=== PATIENT | male | born 1990 | race Caucasian/White ===

== ENCOUNTER 2017-11-20 18:16 | Emergency (ER) | payer MEDICARE, MEDICAID, SELFPAY ==
[2017-11-20 18:22] VITALS: BP 136/83; PULSE 117; RESP 18; TEMP 36.4; O2SAT 95
[2017-11-20 18:25] VITALS: RESP 8
[2017-11-20] MEDS: Albuterol/Ipratropium 3 ML UPD VIAL UPD (18:25)
--- NOTE | 2017-11-20 18:31 | ED.GENADUL_ITS ---
Disposition Clinical Impression: Asthma exacerbation Disposition: HOME Condition: Improving Instructions: Asthma (ED) Additional Instructions: Use the inhaler every 4 hours as needed and directed. Take the steroids until finished. Follow-up with your primary care doctor within the next week. Return to the emergency department with any worsening or new concerning symptoms. Prescriptions: Prednisone 50 mg PO DAILY 5 Days tablet Medical Decision Making - Medical Decision Making 27-year-old male with history of asthma who presents with breath that started while working in the heat changing a tire. Diminished breath sounds with minimal wheezing throughout. Oxygen saturation 95% on room air. Airway is intact and patient speaking in full sentences. Will give neb treatment and p.o. steroids and reassess. He denies any fever, cough and has no areas of localized diminished breath sounds so therefore I do not see any acute indication for chest x-ray at this time. 1830: Patient feels better after first neb treatment. Breath sounds improved. Patient offered a second neb treatment and is agreeable. 1999: Patient feels better after second neb treatment. Breath sounds improved. No wheezing. Oxygen saturation 97% on room air. Patient is speaking full sentences and in no acute distress. While in the emergency department, patient's had stated that she wanted patient's heart checked out. She states that patient's father has a history of heart disease and they have talked to the primary care doctor regarding this and they state the primary care doctor advised him to come to the emergency department. Prior to reevaluation, [facility] called stating that patient's had been calling them stating that patient's heart was not being checked out and they were not being taken care of properly. I discussed this with patient's at bedside stating that patient came in for an asthma exacerbation and we have been treating that properly and expeditously as possible considering a busy emergency department. I explained how he has received 2 neb treatments and oral steroids and his symptoms have improved and thus we have been addressing his acute complaint today. Regards to a concern of his heart being checked out relating to a concern of family history of cardiac disease, I reassured him that his cardiac exam was without murmur or any other obvious acute abnormalities on monitor during today's visit. However patient was informed that lifestyle factors are a huge contribution to risk of heart disease. Patient is obese and is a daily smoker. He was instructed to alter his chronic lifestyle factors which may help contribute to his overall health. I also discussed that if the primary care doctor is referring patient to the emergency department for a cardiac evaluation it would be for an acute complaint and not for a general evaluation regarding a family history. stated that she wanted the paperwork and wanted to leave. Patient states that he does feel better and feels good to go home. I gave him an albuterol with spacer for home. Prescription for steroids given. They are instructed to return to the emergency department with any acute worsening of his symptoms. History of Present Illness - General Chief complaint: SOB Stated complaint: SOB Time Seen by Provider: 11/20/17 18:17 Source: patient Mode of arrival: ambulatory Limitations: no limitations - History of Present Illness Initial comments: Patient is a 27-year-old male with a history of asthma who presents with shortness of breath that started while changing a tire in his sister's car. States he was working out in the heat and he is in the became short of breath. Patient attempted to use his albuterol inhaler but states it was empty. Denies history of intubations. He denies recent fever or cough or chest pain. - Related Data ARIPiprazole [Abilify] 5 mg PO DAILY 02/25/16 Albuterol [Proair Hfa] 8.5 gm IH PRN PRN 07/28/17 Ranitidine [Zantac] 150 mg PO BID #14 tab 07/28/17 BusPIRone [Buspar] 5 g PO TID 08/15/17 Cyclobenzaprine [Flexeril] 10 mg PO Q6H PRN PRN #20 tab 10/30/17 Prednisone 50 mg PO DAILY 5 Days tablet 11/20/17 Allergies Allergy/AdvReac Type Severity Reaction Status Date / Time Latex, Natural Rubber Allergy Unverified 10/30/17 21:31 Penicillins Allergy Hives Unverified 10/30/17 21:31 Sulfa (Sulfonamide Allergy Hives Unverified 10/30/17 21:31 Antibiotics) oxycodone AdvReac Intermediate Nausea Unverified 10/30/17 21:31 amoxicillin AdvReac Mild stomach Unverified 10/30/17 21:31 issues Review of Systems Constitutional: denies: chills, fever Eyes: denies: eye pain ENT: denies: ear pain, dental pain Respiratory: shortness of breath. denies: cough Cardiovascular: denies: chest pain, dyspnea on exertion Gastrointestinal: denies: abdominal pain, nausea, vomiting Genitourinary: denies: urgency, dysuria, frequency Musculoskeletal: denies: back pain Skin: denies: rash, lesions Neurological: denies: headache, weakness, numbness Past Medical History - Past Medical History Medical history: asthma, GERD GERD Surgical history: other (orthopedic surgeries) Family history: CAD/UT, other (Unknown clotting disorder ) - Social History Smoking status: current everyday smoker Alcohol use: rarely Drug use: none General Exam - General Limitations: no limitations General appearance: alert, in no apparent distress - Eye Eye exam: Present: EOMI - Respiratory Respiratory exam: Present: other (Sounds throughout.) - Cardiovascular Cardiovascular Exam: Present: regular rate, normal rhythm. Absent: bradycardia , tachycardia - GI/Abdominal GI/Abdominal exam: Present: soft, normal bowel sounds. Absent: distended, tenderness, guarding, rebound, rigid - Neurological Exam Neurological exam: Present: alert, oriented X3 - Psychiatric Psychiatric exam: Present: normal affect - Skin Skin exam: Present: warm, dry, intact Course Vital Signs - 24 hr 11/20/17 18:22 Temperature 97.5 F L Pulse 117 H Respiratory 18 Rate Blood Pressure 136/83 Pulse Oximetry 95
[2017-11-20] MEDS: predniSONE 20 MG TAB 60 MG PO (19:09)
[2017-11-20] MEDS: Albuterol 2.5 MG/3 ML INH SOLN VIAL UPD (19:10)
[2017-11-20 19:52] VITALS: RESP 18
[2017-11-20 20:20] VITALS: BP 132/77; PULSE 108; RESP 18; TEMP 36.6; O2SAT 94
[2017-11-20] MEDS: Albuterol HFA 8 GM 60 PUFF INH IH (20:20)
[2017-11-20] MEDS: Inhaler, Assist Device 1 EACH MC (20:25)
== END 2017-11-20 20:24 | disposition home or self-care (01) ==
PROVIDERS: Emergency Provider Physician Assistant; PCP Family Medicine
DX: J45.901 Unspecified asthma with (acute) exacerbation (principal); F17.210 Nicotine dependence, cigarettes, uncomplicated
CPT/HCPCS: 94640; 99284 ×2; J7512; J7613; J7620

== ENCOUNTER 2017-12-28 17:23 | Emergency (ER) | payer MEDICARE, MEDICAID, SELFPAY ==
[2017-12-28 17:35] VITALS: BP 151/125; PULSE 91; RESP 16; TEMP 36.2; O2SAT 97
--- NOTE | 2017-12-28 19:15 | DI.RAD_ITS ---
SYMPTOM/DIAGNOSIS: PAIN, SWELLING RIGHT FOREARM: Two views. No priors. No acute fracture or dislocation is identified. IMPRESSION: Negative examination.
--- NOTE | 2017-12-28 20:06 | DI.VRAD_ITS ---
EXAM: XR Right Forearm, 2 Views CLINICAL HISTORY: 27 years old, male; Pain; Lower or forearm; Bilateral TECHNIQUE: Frontal and lateral views of the right forearm. COMPARISON: None available. FINDINGS: Bones/joints: Unremarkable. No acute fracture. No dislocation. Soft tissues: No radiopaque foreign body. IMPRESSION: No acute fracture or malalignment. Dictated and Authenticated by: Ann Goldberg MD. Ordering:LORI MONTANEZ MD
--- NOTE | 2017-12-28 20:29 | ED.GENADUL_ITS ---
Discharge Plan Disposition Patient Disposition: HOME Condition: Good Discharge Details Chief Complaint: Orthopedic Clinical Impression: Contusion Reason For Visit: RT ARM INJ Primary Care Provider: Liz Whitaker ED Provider: Juanis Khan Home Meds and New Rx's Prescriptions: Continue aripiprazole [Abilify] 5 MG tablet 5 mg PO DAILY RF: 0 albuterol sulfate [ProAir HFA] 200 PUFF HFA aerosol inhaler 8.5 gm Inhalation PRN PRNRF: 0 ranitidine HCl [Zantac] 150 MG tablet 150 mg PO BID Qty: 14 RF: 0 buspirone 5 MG tablet 5 g PO TID RF: 0 cyclobenzaprine 10 MG tablet 10 mg PO Q6H PRN PRN (Reason: Pain) Qty: 20 RF: 0 prednisone 50 MG tablet 50 mg PO DAILY 5 Days RF: 0 Discharge Instructions Additional Instructions: Can use warm moist heat or ice if needed for comfort. can use acetaminophen and or ibuprofen as directed for pain Referrals: Liz Whitaker [Primary Care Provider] - (Follow-up as needed) Medical Decision Making Medical Records Medical records reviewed: Yes I reviewed the patient's medical records. Imaging Data Radiologic Study: Imaging: X-Ray (Right forearm) Radiologist's impression: No acute fracture no radiopaque foreign HPI - General Adult General Mode of arrival: ambulatory . Date/Time Provider Initiated Documentation: 12/28/17 17:35 . Limitations to Documentation: no limitations . Information obtained by: patient and RN notes reviewed . HPI Narrative: Patient states he had a injury to his right forearm while helping a friend install a window, has sensation of fluid blood traveling down to his hand. Denies any numbness tingling or decreased sensation or strength Related Data Home Medications Medication Instructions Recorded Confirmed aripiprazole [Abilify] 5 mg PO DAILY 02/25/16 12/28/17 albuterol sulfate [ProAir HFA] 8.5 gm INHALATION PRN PRN 07/28/17 12/28/17 buspirone 5 g PO TID 08/15/17 12/28/17 Previous Rx's Medication Instructions Recorded ranitidine HCl [Zantac] 150 mg PO BID #14 tab 07/28/17 cyclobenzaprine 10 mg PO Q6H PRN PRN #20 tab 10/30/17 prednisone 50 mg PO DAILY 5 Days tablet 11/20/17 Allergies Allergy/AdvReac Type Severity Reaction Status Date / Time Latex, Natural Rubber Allergy Unverified 12/28/17 17:39 Penicillins Allergy Hives Unverified 12/28/17 17:39 Sulfa (Sulfonamide Allergy Hives Unverified 12/28/17 17:39 Antibiotics) oxycodone AdvReac Intermediate Nausea Unverified 12/28/17 17:39 amoxicillin AdvReac Mild stomach Unverified 12/28/17 17:39 issues General Stated Complaint: Orthopedic BRENDEN: 3 Review of Systems Review of Systems All systems reviewed & are unremarkable except as noted in HPI and below PFSH Social History Smoking/Tobacco Use Status: Former Tobacco Use Exam Const General: cooperative, no acute distress and disheveled (Unkempt) Nutritional Appearance: obese Cardio Rate: regular rate Skin Lesions: lesion noted (Small superficial laceration scabbed over no signs of infection) Rashes: rash noted Extrem General: full ROM, normal capillary refill and no edema Course Vital Signs Temperature 36.2 C L 12/28/17 17:35 Pulse 91 H 12/28/17 17:35 Respiratory Rate 16 12/28/17 17:35 Blood Pressure 151/125 H 12/28/17 17:35 Pulse Oximetry 97 12/28/17 17:35 Temperature 36.2 C L 12/28/17 17:35 Pulse 91 H 12/28/17 17:35 Respiratory Rate 16 12/28/17 17:35 Blood Pressure 151/125 H 12/28/17 17:35 Pulse Oximetry 97 12/28/17 17:35
== END 2017-12-28 20:42 | disposition home or self-care (01) ==
PROVIDERS: Emergency Provider Nurse Practitioner Acute Care; PCP Family Medicine
DX: S50.11XA Contusion of right forearm, initial encounter (principal); X58.XXXA Exposure to other specified factors, initial encounter
CPT/HCPCS: 99283; 73090; 99282

== ENCOUNTER 2018-02-01 09:10 | Emergency (ER) | payer MEDICARE, MEDICAID, SELFPAY ==
[2018-02-01 09:13] VITALS: BP 141/83; PULSE 83; RESP 16; TEMP 36.1; O2SAT 93
--- NOTE | 2018-02-01 09:35 | ED.GENADUL_ITS ---
Discharge Plan Disposition Patient Disposition: HOME Condition: Stable Discharge Details Chief Complaint: RespSymp Clinical Impression: Infection, respiratory tract Primary Care Provider: Liz Whitaker ED Provider: Jonathan Zelaya Home Meds and New Rx's Prescriptions: New azithromycin 250 mg tablet See Label Instructions .ROUTE .COMPLEX Qty: 6 RF: 0 Continue aripiprazole [Abilify] 5 MG tablet 5 mg PO DAILY RF: 0 albuterol sulfate [ProAir HFA] 200 PUFF HFA aerosol inhaler 8.5 gm Inhalation PRN PRNRF: 0 ranitidine HCl [Zantac] 150 MG tablet 150 mg PO BID Qty: 14 RF: 0 buspirone 5 MG tablet 5 g PO TID RF: 0 Discharge Instructions Instructions: Upper Respiratory Infection (ED), Cold Symptoms (ED) Additional Instructions: Return to the emergency department immediately for any new or significant worsening of symptoms otherwise take medication as prescribed. You may continue to take [id number] cough and cold medication to control your symptoms and follow-up with your primary care provider if not improving over the next week. Referrals: Liz Whitaker [Primary Care Provider] - 1 week (as needed for reassessment) Discharge Data Discharge Date/Time-TO BE ENTERED AT DEPARTURE: 02/01/18 10:55 Medical Decision Making Patient presenting to the emergency department with chief complaint of 3 days of cold symptoms. Patient has been using [id number] therapy and not having much relief. Patient does state that he is living in a camper has minimal heat until the end of the month. Patient states harsh cough. Physical exam is remarkable for slight rhonchi in the lower bases with diminished lung sounds otherwise findings consistent with upper respiratory tract infection. Given patient's living condition plan to perform radiological imaging due to abnormal lung finding but I more suspect atelectasis given patient's body habitus. Plan to give DuoNeb pending results. Patient otherwise nontoxic and in no signs of acute distress. Radiological imaging of the chest was negative and patient was reassessed and stated improvements and chest tightness after the DuoNeb. Given this I feel that patient has upper respiratory tract infection more likely viral in nature that he is safe to be discharged. Of concern is patient's living condition where they do not have any heat or resources. Patient was prescribed a Z-Aly along [employer] to help with his cough symptoms and encouraged to use over -the-counter symptomatic medications as needed. Patient strongly encouraged to return for any new or worsening symptoms or to follow-up with primary care in 1 week if not improving. After discussion of diagnosis and plan of care patient has no further needs, questions, or concerns and states clear understanding to return to the emergency department for any worsening symptoms. HPI General Mode of arrival: ambulatory . Date/Time Provider Initiated Documentation: 02/01/18 09:11 . Limitations to Documentation: no limitations . Information obtained by: patient and RN notes reviewed . History of Present Illness 27 year old M presents to the emergency department with the chief complaint of Cold symptoms, described as moderate, Quality is described as aching ( Generalized body aches), Patient started experiencing this day(s) (3) and it has been constant. No relieving factors improve symptom(s), No exacerbating factors reported . Patient did receive the following treatments prior to arrival, other ( NyQuil) Related Data Home Medications Medication Instructions Recorded Confirmed aripiprazole [Abilify] 5 mg PO DAILY 02/25/16 02/01/18 albuterol sulfate [ProAir HFA] 8.5 gm INHALATION PRN PRN 07/28/17 02/01/18 ranitidine HCl [Zantac] 150 mg PO BID #14 tab 07/28/17 02/01/18 buspirone 5 g PO TID 08/15/17 02/01/18 azithromycin See Label Instructions .ROUTE 02/01/18 .COMPLEX #6 tab Previous Rx's Medication Instructions Recorded ranitidine HCl [Zantac] 150 mg PO BID #14 tab 07/28/17 azithromycin See Label Instructions .ROUTE 02/01/18 .COMPLEX #6 tab Allergies Allergy/AdvReac Type Severity Reaction Status Date / Time Latex, Natural Rubber Allergy Unverified 02/01/18 09:17 Penicillins Allergy Hives Unverified 02/01/18 09:17 Sulfa (Sulfonamide Allergy Hives Unverified 02/01/18 09:17 Antibiotics) oxycodone AdvReac Intermediate Nausea Unverified 02/01/18 09:17 amoxicillin AdvReac Mild stomach Unverified 02/01/18 09:17 issues General Stated Complaint: RespSymp BRENDEN: 3 Review of Systems Constitutional Reports body ache(s), Reports chills, Denies fever(s), Denies headache(s) and Reports malaise Eyes Denies eye discharge ENT Denies ear discharge, Reports otalgia, Denies headache(s), Reports nasal congestion, Reports nasal discharge, Reports sinus pressure, Denies sore throat and Denies throat swelling Cardiovascular Reports chest pain and Reports dyspnea Respiratory Reports cough and Reports dyspnea Musculoskeletal Denies joint swelling Integumentary/Breasts Denies rash Neurologic Denies headache(s) Allergic/Immunologic Denies throat swelling PFS Social History Smoking/Tobacco Use Status: Former Tobacco Use Exam Const General: cooperative, comfortable and no acute distress Orientation: alert and awake [facility] Head: normal to inspection, normocephalic and atraumatic Ears: hearing grossly normal bilaterally, TM's normal bilaterally, TM abnormal with fluid behind the TM on the left and unable to visualize TM on the right ( Cerumen impaction) General nose exam: external nose normal and nares normal Face and sinus: no erythema and no sinus tenderness Mouth: oral mucosae normal, no drooling, no muffled voice and no trismus Throat: posterior oropharynx normal Neck Neck: normal visual inspection, full ROM, no lymphadenopathy, no meningeal signs , trachea midline and supple Resp Effort & Inspection: normal respiratory effort, able to speak in complete sentences and cough Quality of cough: dry Auscultation: diminished lung sounds bilaterally in the lower lung walters and rhonchi lower bilaterally Cardio Rate: regular rate Rhythm: regular rhythm Heart Sounds: S1 normal, S2 normal, normal S1 and S2, no click, no gallops, no murmurs and no rubs Skin General skin exam: no rashes or lesions noted and dry skin (warm) Neuro General: alert, awake, oriented x3, gait normal and moves all extremities Cognition: normal cognition Speech: speech normal Course Vital Signs Temperature 36.1 C L 02/01/18 09:13 Pulse 83 02/01/18 09:13 Respiratory Rate 16 02/01/18 09:13 Blood Pressure 141/83 H 02/01/18 09:13 Pulse Oximetry 93 L 02/01/18 09:13 Temperature 36.1 C L 02/01/18 09:13 Temperature Source Temporal Artery Scan 02/01/18 09:13 Pulse 83 02/01/18 09:13 Respiratory Rate 16 02/01/18 09:13 Respiratory Effort Non-Labored 02/01/18 09:19 Respiratory Depth Normal 02/01/18 09:19 Blood Pressure 141/83 H 02/01/18 09:13 Blood Pressure Position Sitting 02/01/18 09:13 Pulse Oximetry 93 L 02/01/18 09:13 Oxygen Delivery Method Room Air 02/01/18 09:13 Oxygen Flow Rate 0 02/01/18 09:13 Pain Level 2 02/01/18 09:13
[2018-02-01] MEDS: Albuterol/Ipratropium 3 ML UPD VIAL UPD (09:39)
--- NOTE | 2018-02-01 10:22 | DI.RAD_ITS ---
SYMPTOMS/DIAGNOSIS: COUGH PA AND LATERAL CHEST: The heart is normal in size. The lungs are clear. The mediastinal structures and pleura appear intact. SUMMARY: Normal chest.
[2018-02-01 10:55] VITALS: BP 122/80; PULSE 90; RESP 18; TEMP 36.8; O2SAT 99
== END 2018-02-01 10:55 | disposition home or self-care (01) ==
PROVIDERS: Emergency Provider Nurse Practitioner Family; PCP Family Medicine
DX: J22 Unspecified acute lower respiratory infection (principal); Z87.891 Personal history of nicotine dependence
CPT/HCPCS: 94640; 99283; 71046; J7620

== ENCOUNTER 2018-03-02 23:43 | Emergency (ER) | payer MEDICARE, MEDICAID, SELFPAY ==
[2018-03-02 23:47] VITALS: BP 152/115; PULSE 98; RESP 16; TEMP 36.3; O2SAT 99
[2018-03-02 23:54] VITALS: BP 154/101
--- NOTE | 2018-03-02 23:59 | W.ED.GENAD ---
Discharge Plan Disposition Patient Disposition: HOME Condition: Improving Discharge Details Chief Complaint: ColdExpose Clinical Impression: Cold exposure Primary Care Provider: Liz Whitaker ED Provider: Elias Chang Home Meds and New Rx's Prescriptions: Continue aripiprazole [Abilify] 5 MG tablet 5 mg PO DAILY RF: 0 albuterol sulfate [ProAir HFA] 200 PUFF HFA aerosol inhaler 8.5 gm Inhalation PRN PRNRF: 0 ranitidine HCl [Zantac] 150 MG tablet 150 mg PO BID Qty: 14 RF: 0 buspirone 5 MG tablet 5 g PO TID RF: 0 Discharge Instructions Additional Instructions: Keep your feet warm and dry tonight. Continue your regular medications. Medical Decision Making 27-year-old male who is been sleeping in his vehicle and is awaiting placement in an apartment. He presents complaining of cool feet difficulty warming them in his vehicle. He states he had a walker is now in his boots evening. No blisters. No evidence of ortega bite or ortega nip. It is improved since taking his shoes off and warming his feet up. He has not had any black or discoloration of the skin. Patient is at risk for trench foot but is not had any permanent damage. Nursing staff is work with him to dry his clothing and shoes. He is stable for outpatient management. HPI General Mode of arrival: ambulatory. Date/Time Provider Initiated Documentation: 03/02/18 23:56. Limitations to Documentation: no limitations. Information obtained by: patient. History of Present Illness 27 year old M presents to the emergency department with the chief complaint of Cold feet/cold exposure, and is localized to the lower extremity. Patient started experiencing this hour(s) and it has been intermittent. No relieving factors improve symptom(s), No exacerbating factors reported . Related Data Home Medications Medication Instructions Recorded Confirmed aripiprazole [Abilify] 5 mg PO DAILY 02/25/16 02/01/18 albuterol sulfate [ProAir HFA] 8.5 gm INHALATION PRN PRN 07/28/17 03/02/18 ranitidine HCl [Zantac] 150 mg PO BID #14 tab 07/28/17 02/01/18 buspirone 5 g PO TID 08/15/17 02/01/18 Previous Rx's Medication Instructions Recorded ranitidine HCl [Zantac] 150 mg PO BID #14 tab 07/28/17 Allergies Allergy/AdvReac Type Severity Reaction Status Date / Time Latex, Natural Rubber Allergy Unverified 03/02/18 23:51 Penicillins Allergy Hives Unverified 03/02/18 23:51 Sulfa (Sulfonamide Allergy Hives Unverified 03/02/18 23:51 Antibiotics) oxycodone AdvReac Intermediate Nausea Unverified 03/02/18 23:51 amoxicillin AdvReac Mild stomach Unverified 03/02/18 23:51 issues General Stated Complaint: ColdExpose BRENDEN: 5 Review of Systems Review of Systems 4 systems reviewed and otherwise neg PFSH Social History Smoking/Tobacco Use Status: Never Exam Narrative Exam Narrative: GEN: awake, alert, oriented 3. Pleasant, well groomed, interactive. HEAD: Normocephalic, atraumatic ENT: Mucous membranes moist, oropharynx unremarkable, External ear exam unremarkable EYES: PERRL, EOMI NECK: Full ROM, no VERO, no menigismus EXT: Full ROM, no edema, no rash. No lesions, no skin breakdown, capillary refill less than 2 seconds. 2+ DP billy Neuro: Grossly normal neurologic exam, conversant, interactive. Psych: Speech fluent, thoughts congruent, affect normal Course Vital Signs Temperature 36.3 C L 03/02/18 23:47 Pulse 98 H 03/02/18 23:47 Respiratory Rate 16 03/02/18 23:47 Blood Pressure 152/115 H 03/02/18 23:47 Pulse Oximetry 99 03/02/18 23:47 Temperature 36.3 C L 03/02/18 23:47 Temperature Source Skin 03/02/18 23:47 Pulse 98 H 03/02/18 23:47 Respiratory Rate 16 03/02/18 23:47 Respiratory Effort Non-Labored 03/02/18 23:52 Respiratory Depth Normal 03/02/18 23:52 Respiratory Pattern Normal 03/02/18 23:52 Blood Pressure 154/101 H 03/02/18 23:54 Pulse Oximetry 99 03/02/18 23:47 Pain Level 4 03/02/18 23:52
--- NOTE | 2018-03-03 00:02 | ED.GENADUL_ITS ---
Discharge Plan Disposition Patient Disposition: HOME Condition: Improving Discharge Details Chief Complaint: ColdExpose Clinical Impression: Cold exposure Primary Care Provider: Liz Whitaker ED Provider: Elias Chang Home Meds and New Rx's Prescriptions: Continue aripiprazole [Abilify] 5 MG tablet 5 mg PO DAILY RF: 0 albuterol sulfate [ProAir HFA] 200 PUFF HFA aerosol inhaler 8.5 gm Inhalation PRN PRNRF: 0 ranitidine HCl [Zantac] 150 MG tablet 150 mg PO BID Qty: 14 RF: 0 buspirone 5 MG tablet 5 g PO TID RF: 0 Discharge Instructions Additional Instructions: Keep your feet warm and dry tonight. Continue your regular medications. Medical Decision Making 27-year-old male who is been sleeping in his vehicle and is awaiting placement in an apartment. He presents complaining of cool feet difficulty warming them in his vehicle. He states he had a walker is now in his boots evening. No blisters. No evidence of ortega bite or ortega nip. It is improved since taking his shoes off and warming his feet up. He has not had any black or discoloration of the skin. Patient is at risk for trench foot but is not had any permanent damage. Nursing staff is work with him to dry his clothing and shoes. He is stable for outpatient management. HPI General Mode of arrival: ambulatory . Date/Time Provider Initiated Documentation: 03/02/18 23:56 . Limitations to Documentation: no limitations . Information obtained by: patient . History of Present Illness 27 year old M presents to the emergency department with the chief complaint of Cold feet/cold exposure, and is localized to the lower extremity. Patient started experiencing this hour(s) and it has been intermittent. No relieving factors improve symptom(s), No exacerbating factors reported . Related Data Home Medications Medication Instructions Recorded Confirmed aripiprazole [Abilify] 5 mg PO DAILY 02/25/16 02/01/18 albuterol sulfate [ProAir HFA] 8.5 gm INHALATION PRN PRN 07/28/17 03/02/18 ranitidine HCl [Zantac] 150 mg PO BID #14 tab 07/28/17 02/01/18 buspirone 5 g PO TID 08/15/17 02/01/18 Previous Rx's Medication Instructions Recorded ranitidine HCl [Zantac] 150 mg PO BID #14 tab 07/28/17 Allergies Allergy/AdvReac Type Severity Reaction Status Date / Time Latex, Natural Rubber Allergy Unverified 03/02/18 23:51 Penicillins Allergy Hives Unverified 03/02/18 23:51 Sulfa (Sulfonamide Allergy Hives Unverified 03/02/18 23:51 Antibiotics) oxycodone AdvReac Intermediate Nausea Unverified 03/02/18 23:51 amoxicillin AdvReac Mild stomach Unverified 03/02/18 23:51 issues General Stated Complaint: ColdExpose BRENDEN: 5 Review of Systems Review of Systems 4 systems reviewed and otherwise neg PFSH Social History Smoking/Tobacco Use Status: Never Exam Narrative Exam Narrative: GEN: awake, alert, oriented 3. Pleasant, well groomed, interactive. HEAD: Normocephalic, atraumatic ENT: Mucous membranes moist, oropharynx unremarkable, External ear exam unremarkable EYES: PERRL, EOMI NECK: Full ROM, no VERO, no menigismus EXT: Full ROM, no edema, no rash. No lesions, no skin breakdown, capillary refill less than 2 seconds. 2+ DP billy Neuro: Grossly normal neurologic exam, conversant, interactive. Psych: Speech fluent, thoughts congruent, affect normal Course Vital Signs Temperature 36.3 C L 03/02/18 23:47 Pulse 98 H 03/02/18 23:47 Respiratory Rate 16 03/02/18 23:47 Blood Pressure 152/115 H 03/02/18 23:47 Pulse Oximetry 99 03/02/18 23:47 Temperature 36.3 C L 03/02/18 23:47 Temperature Source Skin 03/02/18 23:47 Pulse 98 H 03/02/18 23:47 Respiratory Rate 16 03/02/18 23:47 Respiratory Effort Non-Labored 03/02/18 23:52 Respiratory Depth Normal 03/02/18 23:52 Respiratory Pattern Normal 03/02/18 23:52 Blood Pressure 154/101 H 03/02/18 23:54 Pulse Oximetry 99 03/02/18 23:47 Pain Level 4 03/02/18 23:52
== END 2018-03-03 01:29 | disposition home or self-care (01) ==
LOC: ER 03-03 01:19
PROVIDERS: Emergency Provider Emergency Medicine; PCP Family Medicine
DX: R20.2 Paresthesia of skin (principal); X31.XXXA Exposure to excessive natural cold, initial encounter; Z59.0 Homelessness
CPT/HCPCS: 99281

== ENCOUNTER 2018-04-07 19:18 | Emergency (ER) | payer MEDICARE, MEDICAID, SELFPAY ==
[2018-04-07 19:19] VITALS: BP 131/95; PULSE 91; RESP 18; TEMP 36.4
--- NOTE | 2018-04-07 19:22 | NUR.NOTE ---
bladder scan 118 mL Nursing Note:
--- NOTE | 2018-04-07 19:26 | DI.US_ITS ---
SYMPTOM/DIAGNOSIS: RT TESTICLE PAIN, ? TORSION SCROTAL ULTRASOUND: Scrotal ultrasound was performed according to the usual protocol. The testes are normal in appearance and symmetrical in size and vascular flow. No intratesticular mass identified. Epididymi are unremarkable in appearance. CONCLUSION: Negative scrotal ultrasound.
--- NOTE | 2018-04-07 20:52 | DI.VRAD_ITS ---
EXAM: US Scrotum EXAM DATE/TIME: 04/07/2018 8:34 PM CLINICAL HISTORY: 27 years old, male; Signs and symptoms; Other: Sudden onset right testicular pain 2 hours ago TECHNIQUE: Real-time ultrasound of the scrotum and contents with color Doppler and image documentation. COMPARISON: No relevant prior studies available. FINDINGS: Right Testicle: Normal. No mass. No torsion. Normal vascular flow. Left Testicle: Normal. No mass. No torsion. Normal vascular flow. Epididymides: Normal. Scrotum: Normal. No evidence of inguinal hernia on the right. IMPRESSION: Normal scrotal ultrasound. Dictated and Authenticated by: Marty Velarde MD. Ordering:PAU Grace MD
[2018-04-07] MEDS: Ketorolac 30 MG/ML VIAL IVP (21:00)
--- NOTE | 2018-04-07 21:27 | DI.CT_ITS ---
SYMPTOM/DIAGNOSIS: RT FLANK AND GROIN PAIN ABDOMEN AND PELVIC CT: CT examination of the abdomen and pelvis was performed without contrast administration. Visualized portions of the liver, spleen and pancreas appear normal. Gallbladder and bile ducts are CT normal. No abdominal wall hernia is seen. Appendix appears normal. No evidence of diverticulitis or bowel obstruction. Abdominal aorta is of normal diameter. Adrenals appear normal bilaterally. There is a 2 mm. non obstructing right renal calculus. There is mild right hydronephrosis and hydroureter to the level of the distal right ureter where there is an obstructing 2 mm. calculus a couple of cm. above the UVJ. Urinary bladder is essentially empty. No collecting system abnormality is seen on the left. No left ureteral stone is seen. No abdominal or pelvic adenopathy is seen. CONCLUSION: 1. Obstructing distal right calculus. 2. Non obstructing right renal calculus.
[2018-04-07] MEDS: Normal Saline 1,000 ML 1000 ML IV (21:30)
[2018-04-07] MEDS: Ondansetron O.D.T. 4 MG TABEF PO (21:30)
[2018-04-07 21:46] LABS: Abs Immature Grans 0.02 k/cumm (0.0-0.09); Absolute Basophil Count 0.03 k/cumm (0.0-0.2); Absolute Eosinophil Count 0.13 k/cumm (0.0-0.7); Absolute Lymphocyte Count 2.59 k/cumm (1.2-3.4); Absolute Monocyte Count 1.06 k/cumm (0.11-0.7); Absolute Neutrophil Count 7.22 k/cumm (1.2-6.7); Basophils % 0.3; Eosinophils % 1.2; HCT 45.4 % (40.0-50.0); HGB 16.3 g/dL (13.5-17.5); Immature Grans % 0.2; Lymphocytes % 23.4; Mean Corp. HGB Concentration 35.9 g/dL (32.0-36.0); Mean Corpuscular Hemoglobin 30.9 pg (27.0-33.0); Mean Platelet Volume 9.9 fL (8.0-11.0); Monocytes % 9.6; Neutrophils % 65.3; Platelet Count 268 x1000/uL (130-400); RBC 5.28 m/cumm (4.50-6.00); RBC Distribution Width 12.7 % (11.8-14.1); White Blood Cell Count 11.05 k/cumm (4.4-10.8)
[2018-04-07 22:00] LABS: ALT 49 U/L (12-78); AST 21 U/L (15-37); Albumin 4.1 g/dL (3.4-5.0); Alkaline Phosphatase 97 U/L (46-116); Anion Gap 11.8 mmol/L (3-11); BUN 14 mg/dL (7-18); Bilirubin, Total 0.5 mg/dL (0.2-1.0); CO2 24.2 mmol/L (21.0-32.0); CREATININE 1.16 mg/dL (0.70-1.30); Chloride 103 mmol/L (98-107); Glucose 87 mg/dL (70-100); Potassium 3.8 mmol/L (3.5-5.1); Sodium 139 mmol/L (136-145); Total Protein 8.3 g/dL (6.4-8.2)
[2018-04-07 22:25] LABS: Bilirubin Negative (Negative); Blood Large (Negative); Clarity Cloudy; Glucose Negative (Negative); Ketones Negative (Negative); Leukocyte Esterase Negative (Negative); Nitrite Negative (Negative); Specific Gravity >= 1.030 (1.005-1.025); Urobilinogen 0.2 EU/dL (Up TO 0.2); pH 5.5 (5-8)
[2018-04-07 22:33] LABS: C & S Indicated? Yes; RBC >50 (0-2)
--- NOTE | 2018-04-07 22:42 | DI.VRAD_ITS ---
EXAM: CT Abdomen and Pelvis Without Contrast EXAM DATE/TIME: 04/07/2018 9:28 PM CLINICAL HISTORY: 27 years old, male; Pain; Abdominal pain TECHNIQUE: Axial computed tomography images of the abdomen and pelvis without contrast. Coronal and sagittal reformatted images were created and reviewed. COMPARISON: No relevant prior studies available. FINDINGS: Lower thorax: No acute findings. ABDOMEN: Liver: No mass. Gallbladder and bile ducts: No calcified stones. No ductal dilation. Pancreas: No ductal dilation. Spleen: Partially imaged spleen is enlarged, 13.9 cm in its longest span. Adrenals: No mass. Kidneys and ureters: Nonobstructing 2 mm right renal calculus. Mild right-sided hydronephrosis, there is a 2 mm calculus within distal portion of the right ureter. Stomach and bowel: No obstruction. No mucosal thickening. Appendix: No evidence of appendicitis. PELVIS: Bladder: Unremarkable as visualized. Reproductive: Unremarkable as visualized. ABDOMEN and PELVIS: Intraperitoneal space: No free air. No significant fluid collection. Bones/joints: No acute fracture. No dislocation. Soft tissues: Unremarkable. Vasculature: No abdominal aortic aneurysm. Lymph nodes: No enlarged lymph nodes. IMPRESSION: Mild right-sided hydroureteronephrosis, caused by a 2 mm calculus within the distal portion of the right ureter. Nonobstructing 2 mm calculus within the collecting system of the right kidney. No calculi elsewhere in the course of the urinary tract. Dictated and Authenticated by: Marty Velarde MD. Ordering:JERMAN Castillo MD
--- NOTE | 2018-04-07 23:05 | W.ED.GENAD ---
Discharge Plan Disposition Patient Disposition: HOME Condition: Improving Discharge Details Chief Complaint: Urinary Clinical Impression: Ureteral calculi Primary Care Provider: Liz Whitaker ED Provider: Jonathan Zelaya Home Meds and New Rx's Prescriptions: New tamsulosin [Flomax] 0.4 mg capsule 0.4 mg PO DAILY Qty: 14 RF: 0 ibuprofen [IBU] 600 mg tablet 600 mg PO QID PRN (Reason: pain) Qty: 30 RF: 0 Continued aripiprazole [Abilify] 5 MG tablet 5 mg PO DAILY RF: 0 ProAir HFA 200 PUFF HFA aerosol inhaler 8.5 gm Inhalation PRN PRNRF: 0 ranitidine HCl [Zantac] 150 MG tablet 150 mg PO BID Qty: 14 RF: 0 buspirone 5 MG tablet 5 g PO TID RF: 0 Discharge Instructions Instructions: Kidney Stones (ED), How to Strain Your Urine (ED) Additional Instructions: Return to the emergency department for any new or significant worsening of your symptoms which include worsening pain, fever chills, vomiting, or other concerns. Otherwise strain your urine and follow-up with urology in 1-2 weeks as needed for reassessment if you have not passed the stone. Referrals: Gm Bray MD [ [facility] STAFF PHYSICIAN] - (2 weeks as needed) Discharge Data Discharge Date/Time-TO BE ENTERED AT DEPARTURE: 04/07/18 23:26 Medical Decision Making Patient presenting to the emergency department for chief complaint of right groin pain. Pending my assessment of patient based upon a complaint order was placed for ultrasound given possible report of scrotal discomfort. Patient briefly examined on the way to ultrasound and patient is stable with no significant distress noted but patient does appear uncomfortable. Patient returned from ultrasound and was assessed and shows a right inguinal tenderness, no testicular tenderness normal exam but of notation is patient complaining of some back pain which patient has diffuse back pain and states CVA tenderness but no marketed response on exam. Of notation was during ultrasound patient did use restroom and stated dark urine there is concern for possible renal calculi causing discomfort. CT scan and labs were ordered. Pending results patient given Zofran and ketorolac along with IV fluids. Review of labs shows nondiagnostic CMP, very mild elevation of leukocytes, and urinalysis showing hematuria. CT image shows a 2 mm calculi within the distal portion of right ureter along with a 2 mm nonobstructing right calculi. There is also noted mild right hydronephrosis. CT scan is otherwise unremarkable. Patient was given Flomax and prescribed ibuprofen for discomfort and placed upon follow-up list with urology to see them in 2 weeks if he has not passed the stone. patient given a strainer to catch the stone and encouraged to stay well-hydrated HPI General Mode of arrival: ambulatory. Date/Time Provider Initiated Documentation: 04/07/18 19:26. Limitations to Documentation: no limitations. Information obtained by: patient. History of Present Illness 27 year old M presents to the emergency department with the chief complaint of right flank groin pain, described as moderate, with intensity rated at 5. Quality is described as sharp, and is localized to the genitals (groin) and right. Patient abdomen and flank. Patient started experiencing this hour(s) (2) and it has been constant. No relieving factors improve symptom(s), No exacerbating factors reported . Patient did receive the following treatments prior to arrival, none Related Data Home Medications Medication Instructions Recorded Confirmed aripiprazole [Abilify] 5 mg PO DAILY 02/25/16 04/07/18 ProAir HFA 8.5 gm INHALATION PRN PRN 07/28/17 04/07/18 ranitidine HCl [Zantac] 150 mg PO BID #14 tab 07/28/17 04/07/18 buspirone 5 g PO TID 08/15/17 04/07/18 ibuprofen [IBU] 600 mg PO QID PRN #30 tab 04/07/18 tamsulosin [Flomax] 0.4 mg PO DAILY #14 cap 04/07/18 Previous Rx's Medication Instructions Recorded ranitidine HCl [Zantac] 150 mg PO BID #14 tab 07/28/17 ibuprofen [IBU] 600 mg PO QID PRN #30 tab 04/07/18 tamsulosin [Flomax] 0.4 mg PO DAILY #14 cap 04/07/18 Allergies Allergy/AdvReac Type Severity Reaction Status Date / Time Latex, Natural Rubber Allergy Unverified 04/07/18 19:23 Penicillins Allergy Hives Unverified 04/07/18 19:23 Sulfa (Sulfonamide Allergy Hives Unverified 04/07/18 19:23 Antibiotics) oxycodone AdvReac Intermediate Nausea Unverified 04/07/18 19:23 amoxicillin AdvReac Mild stomach Unverified 04/07/18 19:23 issues General Stated Complaint: Urinary BRENDEN: 3 Review of Systems Constitutional Denies chills and Denies fever(s) Cardiovascular Denies chest pain and Denies dyspnea Respiratory Denies dyspnea Gastrointestinal Denies abdominal pain, Denies melena, Denies change in bowel habits, Denies constipation, Denies diarrhea, Denies nausea and Denies vomiting Genitourinary Reports as per HPI, Denies hematuria, Reports difficulty urinating, Reports flank pain, Reports urinary hesitancy, Denies urinary incontinence, Denies urinary urgency and Reports other (groin pain) Musculoskeletal Reports back pain Integumentary/Breasts Denies rash [facility] Social History Smoking/Tobacco Use Status: Never Exam Const General: cooperative Orientation: alert, awake and oriented x3 Resp Effort & Inspection: normal respiratory effort and able to speak in complete sentences Auscultation: clear to auscultation bilaterally Cardio Rate: regular rate Rhythm: regular rhythm Heart Sounds: S1 normal and S2 normal GI Palpation: soft, no hepatosplenomegaly, not firm, no guarding, no masses, no pulsatile masses, not rigid, no splenomegaly and tender Auscultation: normal bowel sounds Male General Exam: No edema, No hernia, No inguinal lymphadenopathy and Yes tenderness (Right inguinal canal tenderness without hernia) Penis: normal penis Meatus: meatus normal Scrotum: scrotum normal Testes: normal Back/Spine/Pelvis Back: CVA tenderness Thoracic/Lumbar Spine: paraspinal tenderness Neuro General: alert, awake, oriented x3, gait normal and moves all extremities Course Vital Signs Temperature 36.4 C L 04/07/18 19:19 Pulse 91 H 04/07/18 19:19 Respiratory Rate 18 04/07/18 19:19 Blood Pressure 131/95 H 04/07/18 19:19 Temperature 36.4 C L 04/07/18 19:19 Temperature Source Skin 04/07/18 19:19 Pulse 91 H 04/07/18 19:19 Respiratory Rate 18 04/07/18 19:19 Respiratory Effort 04/07/18 19:19 Blood Pressure 131/95 H 04/07/18 19:19 Oxygen Delivery Method Room Air 04/07/18 19:19 Oxygen Flow Rate 0 04/07/18 19:19 Pain Level 5 04/07/18 19:19 Lab/Test Results Lab/Test Results: 04/07/18 22:15 Urine - Reflex from Ua Urine Culture - Pending Laboratory Tests Range/Units 04/07/18 04/07/18 04/07/18 21:40 21:40 22:15 WBC (4.4-10.8) k/cumm 11.05 H RBC (4.50-6.00) m/cumm 5.28 Hgb (13.5-17.5) g/dL 16.3 Hct (40.0-50.0) % 45.4 MCV (80-95) fL 86.0 MCH (27.0-33.0) pg 30.9 MCHC (32.0-36.0) g/dL 35.9 RDW (11.8-14.1) % 12.7 Plt Count (130-400) x1000/uL 268 MPV (8.0-11.0) fL 9.9 Immature Gran % 0.2 Neutrophils % 65.3 Lymphocytes % 23.4 Monocytes % 9.6 Eosinophils % 1.2 Basophils % 0.3 Absolute Neutrophils (1.2-6.7) k/cumm 7.22 H Absolute Lymphocytes (1.2-3.4) k/cumm 2.59 Absolute Monocytes (0.11-0.7) k/cumm 1.06 H Absolute Eosinophils (0.0-0.7) k/cumm 0.13 Absolute Basophils (0.0-0.2) k/cumm 0.03 Sodium (136-145) mmol/L 139 Potassium (3.5-5.1) mmol/L 3.8 Chloride (98-107) mmol/L 103 Carbon Dioxide (21.0-32.0) mmol/L 24.2 Anion Gap (3-11) mmol/L 11.8 H BUN (7-18) mg/dL 14 Creatinine (0.70-1.30) mg/dL 1.16 Estimated GFR/1.73 m2 (mL/min/1.73m2) >= 60.00 Glucose (70-100) mg/dL 87 Calcium (8.5-10.1) mg/dL 9.0 Total Bilirubin (0.2-1.0) mg/dL 0.5 AST (15-37) U/L 21 ALT (12-78) U/L 49 Alkaline Phosphatase (46-116) U/L 97 Total Protein (6.4-8.2) g/dL 8.3 H Albumin (3.4-5.0) g/dL 4.1 Urine Color (Yellow) Brown Urine Clarity Cloudy Urine pH (5-8) 5.5 Ur Specific [place] (1.005-1.025) >= 1.030 H Urine Protein (Negative) mg/dL 100 H Urine Ketones (Negative) mg/dL Negative Urine Blood (Negative) Large H Urine Nitrite (Negative) Negative Urine Bilirubin (Negative) Negative Urine Urobilinogen (Up TO 0.2) EU/dL 0.2 Ur Leukocyte Esterase (Negative) Negative Urine RBC (0-2) >50 H Urine WBC Not Applicable Ur Epithelial Cells Not Applicable Urine Crystals Not Applicable Urine Bacteria Not Applicable Urine Mucus Not Applicable Ur Culture Indicated? Yes Urine Glucose (Negative) mg/dL Negative
--- NOTE | 2018-04-07 23:08 | ED.GENADUL_ITS ---
Discharge Plan Disposition Patient Disposition: HOME Condition: Improving Discharge Details Chief Complaint: Urinary Clinical Impression: Ureteral calculi Primary Care Provider: Liz Whitaker ED Provider: Jonathan Zelaya Home Meds and New Rx's Prescriptions: New tamsulosin [Flomax] 0.4 mg capsule 0.4 mg PO DAILY Qty: 14 RF: 0 ibuprofen [IBU] 600 mg tablet 600 mg PO QID PRN (Reason: pain) Qty: 30 RF: 0 Continued aripiprazole [Abilify] 5 MG tablet 5 mg PO DAILY RF: 0 ProAir HFA 200 PUFF HFA aerosol inhaler 8.5 gm Inhalation PRN PRNRF: 0 ranitidine HCl [Zantac] 150 MG tablet 150 mg PO BID Qty: 14 RF: 0 buspirone 5 MG tablet 5 g PO TID RF: 0 Discharge Instructions Instructions: Kidney Stones (ED), How to Strain Your Urine (ED) Additional Instructions: Return to the emergency department for any new or significant worsening of your symptoms which include worsening pain, fever chills, vomiting, or other concerns. Otherwise strain your urine and follow-up with urology in 1-2 weeks as needed for reassessment if you have not passed the stone. Referrals: Gm Bray MD [ [facility] STAFF PHYSICIAN] - (2 weeks as needed) Discharge Data Discharge Date/Time-TO BE ENTERED AT DEPARTURE: 04/07/18 23:26 Medical Decision Making Patient presenting to the emergency department for chief complaint of right groin pain. Pending my assessment of patient based upon a complaint order was placed for ultrasound given possible report of scrotal discomfort. Patient briefly examined on the way to ultrasound and patient is stable with no significant distress noted but patient does appear uncomfortable. Patient returned from ultrasound and was assessed and shows a right inguinal tenderness, no testicular tenderness normal exam but of notation is patient complaining of some back pain which patient has diffuse back pain and states CVA tenderness but no marketed response on exam. Of notation was during ultrasound patient did use restroom and stated dark urine there is concern for possible renal calculi causing discomfort. CT scan and labs were ordered. Pending res ults patient given Zofran and ketorolac along with IV fluids. Review of labs shows nondiagnostic CMP, very mild elevation of leukocytes, and urinalysis showing hematuria. CT image shows a 2 mm calculi within the distal portion of right ureter along with a 2 mm nonobstructing right calculi. There is also noted mild right hydronephrosis. CT scan is otherwise unremarkable. Patient was given Flomax and prescribed ibuprofen for discomfort and placed upon follow-up list with urology to see them in 2 weeks if he has not passed the stone. patient given a strainer to catch the stone and encouraged to stay well- hydrated HPI General Mode of arrival: ambulatory . Date/Time Provider Initiated Documentation: 04/07/18 19:26 . Limitations to Documentation: no limitations . Information obtained by: patient . History of Present Illness 27 year old M presents to the emergency department with the chief complaint of right flank groin pain, described as moderate, with intensity rated at 5. Quality is described as sharp, and is localized to the genitals (groin) and right. Patient abdomen and flank. Patient started experiencing this hour(s) (2) and it has been constant. No relieving factors improve symptom(s), No exacerbating factors reported . Patient did receive the following treatments prior to arrival, none Related Data Home Medications Medication Instructions Recorded Confirmed aripiprazole [Abilify] 5 mg PO DAILY 02/25/16 04/07/18 ProAir HFA 8.5 gm INHALATION PRN PRN 07/28/17 04/07/18 ranitidine HCl [Zantac] 150 mg PO BID #14 tab 07/28/17 04/07/18 buspirone 5 g PO TID 08/15/17 04/07/18 ibuprofen [IBU] 600 mg PO QID PRN #30 tab 04/07/18 tamsulosin [Flomax] 0.4 mg PO DAILY #14 cap 04/07/18 Previous Rx's Medication Instructions Recorded ranitidine HCl [Zantac] 150 mg PO BID #14 tab 07/28/17 ibuprofen [IBU] 600 mg PO QID PRN #30 tab 04/07/18 tamsulosin [Flomax] 0.4 mg PO DAILY #14 cap 04/07/18 Allergies Allergy/AdvReac Type Severity Reaction Status Date / Time Latex, Natural Rubber Allergy Unverified 04/07/18 19:23 Penicillins Allergy Hives Unverified 04/07/18 19:23 Sulfa (Sulfonamide Allergy Hives Unverified 12/21/18 19:23 Antibiotics) oxycodone AdvReac Intermediate Nausea Unverified 04/07/18 19:23 amoxicillin AdvReac Mild stomach Unverified 04/07/18 19:23 issues General Stated Complaint: Urinary BRENDEN: 3 Review of Systems Constitutional Denies chills and Denies fever(s) Cardiovascular Denies chest pain and Denies dyspnea Respiratory Denies dyspnea Gastrointestinal Denies abdominal pain, Denies melena, Denies change in bowel habits, Denies constipation, Denies diarrhea, Denies nausea and Denies vomiting Genitourinary Reports as per HPI, Denies hematuria, Reports difficulty urinating, Reports flank pain, Reports urinary hesitancy, Denies urinary incontinence, Denies urinary urgency and Reports other (groin pain) Musculoskeletal Reports back pain Integumentary/Breasts Denies rash [facility] Social History Smoking/Tobacco Use Status: Never Exam Const General: cooperative Orientation: alert, awake and oriented x3 Resp Effort & Inspection: normal respiratory effort and able to speak in complete sentences Auscultation: clear to auscultation bilaterally Cardio Rate: regular rate Rhythm: regular rhythm Heart Sounds: S1 normal and S2 normal GI Palpation: soft, no hepatosplenomegaly, not firm, no guarding, no masses, no pulsatile masses, not rigid, no splenomegaly and tender Auscultation: normal bowel sounds Male General Exam: No edema, No hernia, No inguinal lymphadenopathy and Yes tenderness (Right inguinal canal tenderness without hernia) Penis: normal penis Meatus: meatus normal Scrotum: scrotum normal Testes: normal Back/Spine/Pelvis Back: CVA tenderness Thoracic/Lumbar Spine: paraspinal tenderness Neuro General: alert, awake, oriented x3, gait normal and moves all extremities Course Vital Signs Temperature 36.4 C L 04/07/18 19:19 Pulse 91 H 04/07/18 19:19 Respiratory Rate 18 04/07/18 19:19 Blood Pressure 131/95 H 04/07/18 19:19 Temperature 36.4 C L 04/07/18 19:19 Temperature Source Skin 04/07/18 19:19 Pulse 91 H 04/07/18 19:19 Respiratory Rate 18 04/07/18 19:19 Respiratory Effort 04/07/18 19:19 Blood Pressure 131/95 H 04/07/18 19:19 Oxygen Delivery Method Room Air 04/07/18 19:19 Oxygen Flow Rate 0 04/07/18 19:19 Pain Level 5 04/07/18 19:19 Lab/Test Results Lab/Test Results: 04/07/18 22:15 Urine - Reflex from Ua Urine Culture - Pending Laboratory Tests Range/Units 04/07/18 04/07/18 04/07/18 21:40 21:40 22:15 WBC (4.4-10.8) k/cumm 11.05 H RBC (4.50-6.00) m/cumm 5.28 Hgb (13.5-17.5) g/dL 16.3 Hct (40.0-50.0) % 45.4 MCV (80-95) fL 86.0 MCH (27.0-33.0) pg 30.9 MCHC (32.0-36.0) g/dL 35.9 RDW (11.8-14.1) % 12.7 Plt Count (130-400) x1000/uL 268 MPV (8.0-11.0) fL 9.9 Immature Gran % 0.2 Neutrophils % 65.3 Lymphocytes % 23.4 Monocytes % 9.6 Eosinophils % 1.2 Basophils % 0.3 Absolute Neutrophils (1.2-6.7) k/cumm 7.22 H Absolute Lymphocytes (1.2-3.4) k/cumm 2.59 Absolute Monocytes (0.11-0.7) k/cumm 1.06 H Absolute Eosinophils (0.0-0.7) k/cumm 0.13 Absolute Basophils (0.0-0.2) k/cumm 0.03 Sodium (136-145) mmol/L 139 Potassium (3.5-5.1) mmol/L 3.8 Chloride (98-107) mmol/L 103 Carbon Dioxide (21.0-32.0) mmol/L 24.2 Anion Gap (3-11) mmol/L 11.8 H BUN (7-18) mg/dL 14 Creatinine (0.70-1.30) mg/dL 1.16 Estimated GFR/1.73 m2 (mL/min/1.73m2) >= 60.00 Glucose (70-100) mg/dL 87 Calcium (8.5-10.1) mg/dL 9.0 Total Bilirubin (0.2-1.0) mg/dL 0.5 AST (15-37) U/L 21 ALT (12-78) U/L 49 Alkaline Phosphatase (46-116) U/L 97 Total Protein (6.4-8.2) g/dL 8.3 H Albumin (3.4-5.0) g/dL 4.1 Urine Color (Yellow) Brown Urine Clarity Cloudy Urine pH (5-8) 5.5 Ur Specific [place] (1.005-1.025) >= 1.030 H Urine Protein (Negative) mg/dL 100 H Urine Ketones (Negative) mg/dL Negative Urine Blood (Negative) Large H Urine Nitrite (Negative) Negative Urine Bilirubin (Negative) Negative Urine Urobilinogen (Up TO 0.2) EU/dL 0.2 Ur Leukocyte Esterase (Negative) Negative Urine RBC (0-2) >50 H Urine WBC Not Applicable Ur Epithelial Cells Not Applicable Urine Crystals Not Applicable Urine Bacteria Not Applicable Urine Mucus Not Applicable Ur Culture Indicated? Yes Urine Glucose (Negative) mg/dL Negative
[2018-04-07] MEDS: Tamsulosin 0.4 MG CAPCR PO (23:18)
[2018-04-07] MEDS: Ibuprofen 600 MG TAB PO (23:18)
== END 2018-04-07 23:26 | disposition home or self-care (01) ==
PROVIDERS: Emergency Provider Nurse Practitioner Family; PCP Family Medicine
DX: N13.2 Hydronephrosis with renal and ureteral calculous obstruction (principal)
CPT/HCPCS: 36415; 80053; 96361; 96374; 99284; 74176; 76870; 81003; 81015; 85025; 87086; J1885

== ENCOUNTER 2018-04-08 14:05 | Observation (INO) | payer MEDICARE, MEDICAID, SELFPAY ==
--- NOTE | 2018-04-08 14:06 | W.ED.GENAD ---
Discharge Plan Disposition Patient Disposition: [facility] INPATIENT Condition: Stable Discharge Details Chief Complaint: FlankPain Clinical Impression: Acute kidney injury, Acute dehydration, Right ureteral calculus, Vomiting Reason For Visit: NEPHROLITHIASIS, ADALI Admit Date/Time: 04/08/18 19:52 Admit Provider: Rigo Solis Attending Provider: Rigo Solis Primary Care Provider: Liz Whitaker ED Provider: Lesly Obrien Hospital Course Hospital Course: Mr Real is a 27 year old male who was observed at [facility] overnight 04/08/18 - 04/09/18 after he presented to ED with symptomatic nephrolithiasis, mild hydronephrosis and ADALI. The morning of 04/09/18, he passed the kidney stone, with resolution of his flank pain and significant improvement of his kidney function on labs. While he did have a fever, there is no evidence of UTI on his urinalysis - therefore, he was not treated with antibiotics, and his fever was thought to be part of SIRS due to the nephrolithiasis. Stone analysis is ordered and pending. At this time, patient is medically stable to be discharged home to follow up with PCP. He is being instructed to drink plenty of water at home. Discharge Instructions Instructions: Acute Kidney Injury (DC), Kidney Stones (DC) Additional Instructions: Drink plenty of water. Follow up with your PCP in 1-2 weeks. Return to the hospital with any fever, bleeding, chest pain, shortness of breath, or any recurrence of symptoms. Forms: Nursing Discharge Form Referrals: Liz Whitaker [Primary Care Provider] - Discharge Data Discharge Date/Time-TO BE ENTERED AT DEPARTURE: 04/08/18 20:30 Medical Decision Making 27-year-old male with a history of asthma, anxiety, bipolar disorder who presents for right flank pain and vomiting since early this morning. Patient was seen here yesterday for right groin pain and diagnosed with 2 mm ureteral calculi and discharged home with ibuprofen and Flomax. Patient presents today for persistent pain and vomiting. Blood pressure mildly hypertensive, remainder vitals within normal limits. Patient appears nontoxic. Will place an IV, bolus IV fluids, labs and urinalysis. I do not see an indication for repeat CT scan unless labs are concerning for an acute infectious or obstructive process and patient is agreeable with this plan at this time. Patient's chart also notes an allergy to oxycodone which causes nausea but no history of rash or respiratory symptoms. Will give a dose of morphine, Zofran and bolus IV fluids. Patient took 800mg ibuprofen 2 hours ago. 1500 --labs and imaging reviewed. White blood cell count 15. Yesterday white blood cell count was 11. Suspect this may be a stress response due to vomiting. Creatinine also noted to be 2.08, yesterday was 1.16. This also may be due to vomiting but this is a significant increase. Patient states his pain is much improved from 01/25-08/25. Discussed with patient the possibility of repeating a CT scan and he would rather hold on this at this time due to the radiation. We will give a second liter IV fluid, Flomax, as well as check a lactate. We will plan for repeat BMP to reassess creatinine after second liter IV fluid. 1931 -- d/w [facility] urology -patient with dehydration in association with obstructing stone. Patient may be continuing to have pain due to trying to pass the stone. Recommends admission for overnight monitoring with pain control, fluids, Flomax and to see if patient passes stone. If patient develops fever, he may need transfer to [facility] for stent but otherwise can be admitted here. No indication for any additional acute imaging at this time. Lactate 0.8. 1941 -- d/ hospitalist - accepts pt for admission. Medical Records Medical records reviewed: Yes I reviewed the patient's medical records. Lab Data Lab results reviewed: Yes I reviewed the patient's lab results. Laboratory Tests Range/Units 04/08/18 04/08/18 04/08/18 14:20 14:20 15:26 WBC (4.4-10.8) k/cumm 15.26 H D RBC (4.50-6.00) m/cumm 5.24 Hgb (13.5-17.5) g/dL 16.2 Hct (40.0-50.0) % 45.4 MCV (80-95) fL 86.6 MCH (27.0-33.0) pg 30.9 MCHC (32.0-36.0) g/dL 35.7 RDW (11.8-14.1) % 12.6 Plt Count (130-400) x1000/uL 278 MPV (8.0-11.0) fL 10.0 Immature Gran % 0.2 Neutrophils % 82.0 Lymphocytes % 8.0 Monocytes % 9.4 Eosinophils % 0.3 Basophils % 0.1 Absolute Neutrophils (1.2-6.7) k/cumm 12.51 H Absolute Lymphocytes (1.2-3.4) k/cumm 1.22 Absolute Monocytes (0.11-0.7) k/cumm 1.43 H Absolute Eosinophils (0.0-0.7) k/cumm 0.05 Absolute Basophils (0.0-0.2) k/cumm 0.02 Sodium (136-145) mmol/L 140 Potassium (3.5-5.1) mmol/L 4.0 Chloride (98-107) mmol/L 103 Carbon Dioxide (21.0-32.0) mmol/L 26.9 Anion Gap (3-11) mmol/L 10.1 BUN (7-18) mg/dL 19 H Creatinine (0.70-1.30) mg/dL 2.08 H D Estimated GFR/1.73 m2 (mL/min/1.73m2) 37.94 Glucose (70-100) mg/dL 104 H Lactate (0.6-1.4) mmol/L 0.8 Calcium (8.5-10.1) mg/dL 9.5 Urine Color (Yellow) Urine Clarity Urine pH (5-8) Ur Specific [place] (1.005-1.025) Urine Protein (Negative) mg/dL Urine Ketones (Negative) mg/dL Urine Blood (Negative) Urine Nitrite (Negative) Urine Bilirubin (Negative) Urine Urobilinogen (Up TO 0.2) EU/dL Ur Leukocyte Esterase (Negative) Urine RBC (0-2) Urine WBC (0-5) HPF Ur Epithelial Cells (Negative) HPF Urine Crystals (Negative) HPF Urine Bacteria (Negative) HPF Urine Casts (Negative) LPF Urine Mucus (Negative) Urine Other (Negative) Ur Culture Indicated? Urine Glucose (Negative) mg/dL Range/Units 04/08/18 04/08/18 16:30 17:07 WBC (4.4-10.8) k/cumm RBC (4.50-6.00) m/cumm Hgb (13.5-17.5) g/dL Hct (40.0-50.0) % MCV (80-95) fL MCH (27.0-33.0) pg MCHC (32.0-36.0) g/dL RDW (11.8-14.1) % Plt Count (130-400) x1000/uL MPV (8.0-11.0) fL Immature Gran % Neutrophils % Lymphocytes % Monocytes % Eosinophils % Basophils % Absolute Neutrophils (1.2-6.7) k/cumm Absolute Lymphocytes (1.2-3.4) k/cumm Absolute Monocytes (0.11-0.7) k/cumm Absolute Eosinophils (0.0-0.7) k/cumm Absolute Basophils (0.0-0.2) k/cumm Sodium (136-145) mmol/L 142 Potassium (3.5-5.1) mmol/L 4.2 Chloride (98-107) mmol/L 106 Carbon Dioxide (21.0-32.0) mmol/L 28.6 Anion Gap (3-11) mmol/L 7.4 BUN (7-18) mg/dL 19 H Creatinine (0.70-1.30) mg/dL 2.07 H Estimated GFR/1.73 m2 (mL/min/1.73m2) 38.15 Glucose (70-100) mg/dL 95 Lactate (0.6-1.4) mmol/L Calcium (8.5-10.1) mg/dL 8.8 Urine Color (Yellow) Yellow Urine Clarity Clear Urine pH (5-8) 6.0 Ur Specific [place] (1.005-1.025) 1.025 Urine Protein (Negative) mg/dL Negative Urine Ketones (Negative) mg/dL Negative Urine Blood (Negative) Small H Urine Nitrite (Negative) Negative Urine Bilirubin (Negative) Negative Urine Urobilinogen (Up TO 0.2) EU/dL 0.2 Ur Leukocyte Esterase (Negative) Negative Urine RBC (0-2) 3-5 H Urine WBC (0-5) HPF 0-2 Ur Epithelial Cells (Negative) HPF Negative Urine Crystals (Negative) HPF Negative Urine Bacteria (Negative) HPF Few Urine Casts (Negative) LPF Negative Urine Mucus (Negative) Trace Urine Other (Negative) Negative Ur Culture Indicated? No Urine Glucose (Negative) mg/dL Negative HPI General Mode of arrival: ambulatory. Date/Time Provider Initiated Documentation: 04/08/18 14:07. Limitations to Documentation: no limitations. Information obtained by: patient and family. HPI Narrative: Patient is a 27-year-old male who presents with right flank pain, and vomiting since early this morning. Patient was seen here last night and diagnosed with kidney stone and discharged home. Patient was found to have a 2 mm ureteral calculi and was sent home with ibuprofen and Flomax. Patient states when he was seen here yesterday it had developed last night in his right groin and resolved upon discharge. Patient states he then developed pain in his right flank today. Patient admits to vomiting several times today. Patient denies any known fever, abdominal pain, testicular or groin pain, or urinary symptoms. Related Data Home Medications Medication Instructions Recorded Confirmed aripiprazole [Abilify] 5 mg PO DAILY 02/25/16 04/08/18 ProAir HFA 8.5 gm INHALATION PRN PRN 07/28/17 04/08/18 ranitidine HCl [Zantac] 150 mg PO BID #14 tab 07/28/17 04/08/18 Previous Rx's Medication Instructions Recorded ranitidine HCl [Zantac] 150 mg PO BID #14 tab 07/28/17 Allergies Allergy/AdvReac Type Severity Reaction Status Date / Time Latex, Natural Rubber Allergy Unverified 04/07/18 19:23 Penicillins Allergy Hives Unverified 04/07/18 19:23 Sulfa (Sulfonamide Allergy Hives Unverified 04/07/18 19:23 Antibiotics) oxycodone AdvReac Intermediate Nausea Unverified 04/07/18 19:23 amoxicillin AdvReac Mild stomach Unverified 04/07/18 19:23 issues General BRENDEN: 3 Review of Systems Review of Systems All systems reviewed & are unremarkable except as noted in HPI and below Constitutional Reports as per HPI, Denies chills and Denies fever(s) Eyes Denies blurry vision ENT Denies dizziness, Denies sore throat and Denies throat swelling Cardiovascular Denies chest pain and Denies dyspnea Respiratory Denies dyspnea Gastrointestinal Denies abdominal pain, Denies diarrhea and Reports vomiting Genitourinary Denies hematuria, Denies dysuria and Reports flank pain Musculoskeletal Denies back pain and Denies numbness Integumentary/Breasts Denies lesions and Denies rash Neurologic Denies dizziness and Denies numbness Allergic/Immunologic Denies throat swelling [facility] Medical History Nephrolithiasis (Acute) Bipolar 1 disorder (Chronic) Anxiety (Chronic) Asthma (Chronic) Anxiety (Chronic) Asthma (Chronic) Bipolar disorder (Chronic) Surgical History History of ankle surgery (Acute) History of knee surgery (Acute) Social History Smoking/Tobacco Use Status: Never additional social history: The patient is and has 1 daughter. He is on disability lifelong for learning disability. Reports occasional tobacco use, and no alcohol use. He denies illicit drug use. Exam Const General: cooperative, healthy appearing and no acute distress HENMT Head: normal to inspection Face and sinus: normal facial exam Eyes General: appearance normal, both eyes and all related structures Pupils: PERRL EOM: EOM intact bilaterally Neck Neck: normal visual inspection and No submandibular swelling Lymphatic: no lymphadenopathy noted Chest Chest: normal inspection of the chest and no tenderness Resp Effort & Inspection: normal respiratory effort and able to speak in complete sentences Auscultation: clear to auscultation bilaterally Cardio Rate: regular rate Rhythm: regular rhythm GI Inspection: normal to inspection Palpation: soft, not firm, not rigid and nontender Auscultation: normal bowel sounds Male General Exam: Yes normal external exam Penis: normal penis Scrotum: scrotum normal Testes: normal, no testicular mass, no testicular swelling and no testicular tenderness Back/Spine/Pelvis Back: no CVA tenderness Thoracic/Lumbar Spine: thoracic and lumbar spine normal to inspection Pelvis: no pain with anterior-posterior compression Skin General skin exam: no rashes or lesions noted Neuro General: alert, awake and oriented x3 Cognition: normal cognition Speech: speech normal Motor: muscle tone normal throughout Sensory Exam: no sensory deficits noted Extrem General: normal to inspection, full ROM, normal capillary refill, no calf tenderness bilaterally and no edema Psych Appearance: grossly normal Mental Status: mental status grossly normal Speech and Movement: speech and movement normal Affect: normal affect
[2018-04-08 14:08] VITALS: BP 143/90; PULSE 88; RESP 18; TEMP 35.9; O2SAT 95
[2018-04-08] MEDS: Normal Saline 1,000 ML 1000 ML IV ×2 (14:22→15:36)
--- NOTE | 2018-04-08 14:22 | ED.GENADUL_ITS ---
Discharge Plan Disposition Patient Disposition: [facility] INPATIENT Condition: Stable Discharge Details Chief Complaint: FlankPain Clinical Impression: Acute kidney injury, Acute dehydration, Right ureteral calculus, Vomiting Reason For Visit: NEPHROLITHIASIS, ADALI Admit Date/Time: 04/08/18 19:52 Admit Provider: Rigo Solis Attending Provider: Rigo Solis Primary Care Provider: Liz Whitaker ED Provider: Lesly Obrien Hospital Course Hospital Course: Mr Real is a 27 year old male who was observed at [facility] overnight 04/08/18 - 04/09/18 after he presented to ED with symptomatic nephrolithiasis, mild hydronephrosis and ADALI. The morning of 04/09/18, he passed the kidney stone, with resolution of his flank pain and significant improvement of his kidney function on labs. While he did have a fever, there is no evidence of UTI on his urinalysis - therefore, he was not treated with antibiotics, and his fever was thought to be part of SIRS due to the nephrolithiasis. Stone analysis is ordered and pending. At this time, patient is medically stable to be discharged home to follow up with PCP. He is being instructed to drink plenty of water at home. Discharge Instructions Instructions: Acute Kidney Injury (DC), Kidney Stones (DC) Additional Instructions: Drink plenty of water. Follow up with your PCP in 1-2 weeks. Return to the hospital with any fever, bleeding, chest pain, shortness of breath, or any recurrence of symptoms. Forms: Nursing Discharge Form Referrals: Liz Whitaker [Primary Care Provider] - Discharge Data Discharge Date/Time-TO BE ENTERED AT DEPARTURE: 04/08/18 20:30 Medical Decision Making 27-year-old male with a history of asthma, anxiety, bipolar disorder who presents for right flank pain and vomiting since early this morning. Patient was seen here yesterday for right groin pain and diagnosed with 2 mm ureteral calculi and discharged home with ibuprofen and Flomax. Patient presents today for persistent pain and vomiting. Blood pressure mildly hypertensive, remainder vitals within normal limits. Patient appears nontoxic. Will place an IV, bolus IV fluids, labs and urinalysis. I do not see an indication for repeat CT scan unless labs are concerning for an acute infectious or obstructive process and patient is agreeable with this plan at this time. Patient's chart also notes an allergy to oxycodone which causes nausea but no history of rash or respiratory symptoms. Will give a dose of morphine, Zofran and bolus IV fluids. Patient took 800mg ibuprofen 2 hours ago. 1500 --labs and imaging reviewed. White blood cell count 15. Yesterday white blood cell count was 11. Suspect this may be a stress response due to vomiting. Creatinine also noted to be 2.08, yesterday was 1.16. This also may be due to vomiting but this is a significant increase. Patient states his pain is much improved from 01/25-08/25. Discussed with patient the possibility of repeating a CT scan and he would rather hold on this at this time due to the radiation. We will give a second liter IV fluid, Flomax, as well as check a lactate. We will plan for repeat BMP to reassess creatinine after second liter IV fluid. 1931 -- d/w [facility] urology -patient with dehydration in association with obstructing stone. Patient may be continuing to have pain due to trying to pass the stone. Recommends admission for overnight monitoring with pain control, fluids, Flomax and to see if patient passes stone. If patient develops fever, he may need transfer to [facility] for stent but otherwise can be admitted here. No indication for any additional acute imaging at this time. Lactate 0.8. 1941 -- d/ hospitalist - accepts pt for admission. Medical Records Medical records reviewed: Yes I reviewed the patient's medical records. Lab Data Lab results reviewed: Yes I reviewed the patient's lab results. Laboratory Tests Range/Units 04/08/18 04/08/18 04/08/18 14:20 14:20 15:26 WBC (4.4-10.8) k/cumm 15.26 H D RBC (4.50-6.00) m/cumm 5.24 Hgb (13.5-17.5) g/dL 16.2 Hct (40.0-50.0) % 45.4 MCV (80-95) fL 86.6 MCH (27.0-33.0) pg 30.9 MCHC (32.0-36.0) g/dL 35.7 RDW (11.8-14.1) % 12.6 Plt Count (130-400) x1000/uL 278 MPV (8.0-11.0) fL 10.0 Immature Gran % 0.2 Neutrophils % 82.0 Lymphocytes % 8.0 Monocytes % 9.4 Eosinophils % 0.3 Basophils % 0.1 Absolute Neutrophils (1.2-6.7) k/cumm 12.51 H Absolute Lymphocytes (1.2-3.4) k/cumm 1.22 Absolute Monocytes (0.11-0.7) k/cumm 1.43 H Absolute Eosinophils (0.0-0.7) k/cumm 0.05 Absolute Basophils (0.0-0.2) k/cumm 0.02 Sodium (136-145) mmol/L 140 Potassium (3.5-5.1) mmol/L 4.0 Chloride (98-107) mmol/L 103 Carbon Dioxide (21.0-32.0) mmol/L 26.9 Anion Gap (3-11) mmol/L 10.1 BUN (7-18) mg/dL 19 H Creatinine (0.70-1.30) mg/dL 2.08 H D Estimated GFR/1.73 m2 (mL/min/1.73m2) 37.94 Glucose (70-100) mg/dL 104 H Lactate (0.6-1.4) mmol/L 0.8 Calcium (8.5-10.1) mg/dL 9.5 Urine Color (Yellow) Urine Clarity Urine pH (5-8) Ur Specific [place] (1.005-1.025) Urine Protein (Negative) mg/dL Urine Ketones (Negative) mg/dL Urine Blood (Negative) Urine Nitrite (Negative) Urine Bilirubin (Negative) Urine Urobilinogen (Up TO 0.2) EU/dL Ur Leukocyte Esterase (Negative) Urine RBC (0-2) Urine WBC (0-5) HPF Ur Epithelial Cells (Negative) HPF Urine Crystals (Negative) HPF Urine Bacteria (Negative) HPF Urine Casts (Negative) LPF Urine Mucus (Negative) Urine Other (Negative) Ur Culture Indicated? Urine Glucose (Negative) mg/dL Range/Units 04/08/18 04/08/18 16:30 17:07 WBC (4.4-10.8) k/cumm RBC (4.50-6.00) m/cumm Hgb (13.5-17.5) g/dL Hct (40.0-50.0) % MCV (80-95) fL MCH (27.0-33.0) pg MCHC (32.0-36.0) g/dL RDW (11.8-14.1) % Plt Count (130-400) x1000/uL MPV (8.0-11.0) fL Immature Gran % Neutrophils % Lymphocytes % Monocytes % Eosinophils % Basophils % Absolute Neutrophils (1.2-6.7) k/cumm Absolute Lymphocytes (1.2-3.4) k/cumm Absolute Monocytes (0.11-0.7) k/cumm Absolute Eosinophils (0.0-0.7) k/cumm Absolute Basophils (0.0-0.2) k/cumm Sodium (136-145) mmol/L 142 Potassium (3.5-5.1) mmol/L 4.2 Chloride (98-107) mmol/L 106 Carbon Dioxide (21.0-32.0) mmol/L 28.6 Anion Gap (3-11) mmol/L 7.4 BUN (7-18) mg/dL 19 H Creatinine (0.70-1.30) mg/dL 2.07 H Estimated GFR/1.73 m2 (mL/min/1.73m2) 38.15 Glucose (70-100) mg/dL 95 Lactate (0.6-1.4) mmol/L Calcium (8.5-10.1) mg/dL 8.8 Urine Color (Yellow) Yellow Urine Clarity Clear Urine pH (5-8) 6.0 Ur Specific [place] (1.005-1.025) 1.025 Urine Protein (Negative) mg/dL Negative Urine Ketones (Negative) mg/dL Negative Urine Blood (Negative) Small H Urine Nitrite (Negative) Negative Urine Bilirubin (Negative) Negative Urine Urobilinogen (Up TO 0.2) EU/dL 0.2 Ur Leukocyte Esterase (Negative) Negative Urine RBC (0-2) 3-5 H Urine WBC (0-5) HPF 0-2 Ur Epithelial Cells (Negative) HPF Negative Urine Crystals (Negative) HPF Negative Urine Bacteria (Negative) HPF Few Urine Casts (Negative) LPF Negative Urine Mucus (Negative) Trace Urine Other (Negative) Negative Ur Culture Indicated? No Urine Glucose (Negative) mg/dL Negative HPI General Mode of arrival: ambulatory . Date/Time Provider Initiated Documentation: 04/08/18 14:07 . Limitations to Documentation: no limitations . Information obtained by: patient and family . HPI Narrative: Patient is a 27-year-old male who presents with right flank pain, and vomiting since early this morning. Patient was seen here last night and diagnosed with kidney stone and discharged home. Patient was found to have a 2 mm ureteral calculi and was sent home with ibuprofen and Flomax. Patient states when he was seen here yesterday it had developed last night in his right groin and resolved upon discharge. Patient states he then developed pain in his right flank today. Patient admits to vomiting several times today. Patient denies any known fever, abdominal pain, testicular or groin pain, or urinary symptoms. Related Data Home Medications Medication Instructions Recorded Confirmed aripiprazole [Abilify] 5 mg PO DAILY 02/25/16 04/08/18 ProAir HFA 8.5 gm INHALATION PRN PRN 07/28/17 04/08/18 ranitidine HCl [Zantac] 150 mg PO BID #14 tab 07/28/17 04/08/18 Previous Rx's Medication Instructions Recorded ranitidine HCl [Zantac] 150 mg PO BID #14 tab 07/28/17 Allergies Allergy/AdvReac Type Severity Reaction Status Date / Time Latex, Natural Rubber Allergy Unverified 04/07/18 19:23 Penicillins Allergy Hives Unverified 04/07/18 19:23 Sulfa (Sulfonamide Allergy Hives Unverified 04/07/18 19:23 Antibiotics) oxycodone AdvReac Intermediate Nausea Unverified 04/07/18 19:23 amoxicillin AdvReac Mild stomach Unverified 04/07/18 19:23 issues General BRENDEN: 3 Review of Systems Review of Systems All systems reviewed & are unremarkable except as noted in HPI and below Constitutional Reports as per HPI, Denies chills and Denies fever(s) Eyes Denies blurry vision ENT Denies dizziness, Denies sore throat and Denies throat swelling Cardiovascular Denies chest pain and Denies dyspnea Respiratory Denies dyspnea Gastrointestinal Denies abdominal pain, Denies diarrhea and Reports vomiting Genitourinary Denies hematuria, Denies dysuria and Reports flank pain Musculoskeletal Denies back pain and Denies numbness Integumentary/Breasts Denies lesions and Denies rash Neurologic Denies dizziness and Denies numbness Allergic/Immunologic Denies throat swelling [facility] Medical History Nephrolithiasis (Acute) Bipolar 1 disorder (Chronic) Anxiety (Chronic) Asthma (Chronic) Anxiety (Chronic) Asthma (Chronic) Bipolar disorder (Chronic) Surgical History History of ankle surgery (Acute) History of knee surgery (Acute) Social History Smoking/Tobacco Use Status: Never additional social history: The patient is and has 1 daughter. He is on disability lifelong for learning disability. Reports occasional tobacco use, and no alcohol use. He denies illicit drug use. Exam Const General: cooperative, healthy appearing and no acute distress HENMT Head: normal to inspection Face and sinus: normal facial exam Eyes General: appearance normal, both eyes and all related structures Pupils: PERRL EOM: EOM intact bilaterally Neck Neck: normal visual inspection and No submandibular swelling Lymphatic: no lymphadenopathy noted Chest Chest: normal inspection of the chest and no tenderness Resp Effort & Inspection: normal respiratory effort and able to speak in complete sentences Auscultation: clear to auscultation bilaterally Cardio Rate: regular rate Rhythm: regular rhythm GI Inspection: normal to inspection Palpation: soft, not firm, not rigid and nontender Auscultation: normal bowel sounds Male General Exam: Yes normal external exam Penis: normal penis Scrotum: scrotum normal Testes: normal, no testicular mass, no testicular swelling and no testicular tenderness Back/Spine/Pelvis Back: no CVA tenderness Thoracic/Lumbar Spine: thoracic and lumbar spine normal to inspection Pelvis: no pain with anterior-posterior compression Skin General skin exam: no rashes or lesions noted Neuro General: alert, awake and oriented x3 Cognition: normal cognition Speech: speech normal Motor: muscle tone normal throughout Sensory Exam: no sensory deficits noted Extrem General: normal to inspection, full ROM, normal capillary refill, no calf tenderness bilaterally and no edema Psych Appearance: grossly normal Mental Status: mental status grossly normal Speech and Movement: speech and movement normal Affect: normal affect
[2018-04-08] MEDS: Ondansetron 4 MG/2 ML VIAL IVP (14:23)
[2018-04-08 14:32] LABS: Abs Immature Grans 0.03 k/cumm (0.0-0.09); Absolute Basophil Count 0.02 k/cumm (0.0-0.2); Absolute Eosinophil Count 0.05 k/cumm (0.0-0.7); Absolute Lymphocyte Count 1.22 k/cumm (1.2-3.4); Absolute Monocyte Count 1.43 k/cumm (0.11-0.7); Absolute Neutrophil Count 12.51 k/cumm (1.2-6.7); Basophils % 0.1; Eosinophils % 0.3; HCT 45.4 % (40.0-50.0); HGB 16.2 g/dL (13.5-17.5); Immature Grans % 0.2; Mean Corp. HGB Concentration 35.7 g/dL (32.0-36.0); Mean Corpuscular Hemoglobin 30.9 pg (27.0-33.0); Mean Corpuscular Volume 86.6 fL (80-95); Monocytes % 9.4; Platelet Count 278 x1000/uL (130-400); RBC 5.24 m/cumm (4.50-6.00); RBC Distribution Width 12.6 % (11.8-14.1); White Blood Cell Count 15.26 k/cumm (4.4-10.8)
[2018-04-08 14:35] LABS: Anion Gap 10.1 mmol/L (3-11); BUN 19 mg/dL (7-18); CO2 26.9 mmol/L (21.0-32.0); CREATININE 2.08 mg/dL (0.70-1.30); Calcium 9.5 mg/dL (8.5-10.1); Chloride 103 mmol/L (98-107); Estimated GFR 37.94 (mL/min/1.73m2); Glucose 104 mg/dL (70-100); Sodium 140 mmol/L (136-145)
[2018-04-08] MEDS: Tamsulosin 0.4 MG CAPCR PO (15:17)
[2018-04-08 15:34] LABS: Lactate-non-spesis 0.8 mmol/L (0.6-1.4)
[2018-04-08 16:37] LABS: Bilirubin Negative (Negative); Blood Small (Negative); Clarity Clear; Glucose Negative (Negative); Ketones Negative (Negative); Leukocyte Esterase Negative (Negative); Nitrite Negative (Negative); Specific Gravity 1.025 (1.005-1.025); Urobilinogen 0.2 EU/dL (Up TO 0.2)
[2018-04-08 16:46] LABS: Bacteria Few HPF (Negative); C & S Indicated? No; Casts Negative LPF (Negative); Crystals Negative HPF (Negative); Epithelial Cells Negative HPF (Negative); Mucus Trace (Negative); Other Cells Negative (Negative); WBC 0-2 HPF (0-5)
[2018-04-08 17:35] VITALS: BP 155/77; PULSE 77; RESP 16; O2SAT 100
[2018-04-08] MEDS: Ketorolac 30 MG/ML VIAL IVP (17:48)
[2018-04-08 18:17] LABS: Anion Gap 7.4 mmol/L (3-11); BUN 19 mg/dL (7-18); CO2 28.6 mmol/L (21.0-32.0); CREATININE 2.07 mg/dL (0.70-1.30); Calcium 8.8 mg/dL (8.5-10.1); Chloride 106 mmol/L (98-107); Estimated GFR 38.15 (mL/min/1.73m2); Glucose 95 mg/dL (70-100); Potassium 4.2 mmol/L (3.5-5.1); Sodium 142 mmol/L (136-145)
[2018-04-08] MEDS: Normal Saline 1,000 ML 150 ML IV (19:47)
[2018-04-08 20:20] VITALS: BP 145/74; PULSE 81; RESP 18; TEMP 36.7; O2SAT 95
[2018-04-08 20:41] VITALS: BP 133/75; PULSE 80; RESP 18; TEMP 37.5; O2SAT 94
[2018-04-08] MEDS: Heparin 5,000 UNITS/ML VIAL 5000 UNITS SC (21:05)
--- NOTE | 2018-04-08 21:52 | HPE_ITS ---
Date of service: 04/08/18 Time of Service: 21:41 Assessment and Plan (1) Nephrolithiasis: Current visit: Yes Status: Acute Evidence of a distal right ureter stone with associated mild right-sided hydroureteronephrosis by imaging performed yesterday. Mr. adams his symptoms worsened despite NSAID and alpha ata therapy, and his creatinine has doubled in value overnight. Along with evidence of obstruction by imaging yesterday this is worrisome for potential obstructive uropathy. However, urology would like an attempt at hydration with close monitoring of kidney function. Initiate normal saline tonight and continue pain control with opiate-based analgesics, and avoid NSAIDs in the setting of acute kidney injury. We will continue alpha-ata as well to promote stone passage. As the stone is less than tell a 10 mm there is a chance that it will pass, and as such urine straining has been ordered as well. However, if the patient's acute kidney injury persists or worsens by the morning, or if there is any evidence of infection with a fever or worsening leukocytosis will consider transfer for official urologic evaluation and intervention if deemed appropriate. (2) ADALI (acute kidney injury): Current visit: Yes Status: Acute Plan as above. Continue on IV fluids, avoid nephrotoxins, and renally dose medications when appropriate. (3) Bipolar 1 disorder: Current visit: Yes Status: Chronic Continue home regimen of aripiprazole. (4) Asthma: Current visit: Yes Status: Chronic DuoNeb's as needed. (5) DVT prophylaxis: Current visit: Yes Status: Acute SC heparin. History of Present Illness Chief Complaint: Right flank pain, vomiting Narrative: 27-year-old man with past medical history significant for asthma, anxiety, and bipolar disorder presented to [facility] emergency department with complaints of nausea, vomiting, and worsening right-sided flank plain. Mr. valdes was initially seen in the emergency department yesterday on 07 April with an initial complaint of right groin pain. His workup was fairly unremarkable, including normal exam and scrotal ultrasound, but as he has also had some back pain a CT scan was obtained showing a 2 mm distal ureter stone with associated mild right-sided hydroureteronephrosis. He was prescribed ibuprofen and an alpha-ata, and discharged home. However, the patient's symptoms continued, consisting of worsening right-sided flank pain as well as new nausea and vomiting. In fact he reports that he spent the majority of last evening and overnight vomiting, especially after meals. He was seen again in the emergency department today, with lab work significant for worsening leukocytosis, and an acute kidney injury with a doubling of his creatinine. No further imaging studies were performed. Consultation between the ED attending and urology at [facility] was held by phone, resulting in plans for admission and overnight observation, hydration, and pain management with repeat labs in the morning. The patient was at that time referred for admission for further evaluation and treatment. Review of Systems Review of Systems All systems reviewed & are unremarkable except as noted in HPI and below [facility] Medical History Nephrolithiasis (Acute) Bipolar 1 disorder (Chronic) Anxiety (Chronic) Asthma (Chronic) Anxiety (Chronic) Asthma (Chronic) Bipolar disorder (Chronic) Surgical History History of ankle surgery (Acute) History of knee surgery (Acute) Social History Smoking/Tobacco Use Status: Never additional social history: The patient is and has 1 daughter. He is on disability lifelong for learning disability. Reports occasional tobacco use, and no alcohol use. He denies illicit drug use. Meds Home Medications Medication Instructions Recorded Confirmed Type aripiprazole [Abilify] 5 mg PO DAILY 02/25/16 04/08/18 History ProAir HFA 8.5 gm INHALATION PRN PRN 07/28/17 04/08/18 History ranitidine HCl [Zantac] 150 mg PO BID #14 tab 07/28/17 04/08/18 Rx tamsulosin [Flomax] 0.4 mg PO DAILY #14 cap 04/07/18 04/08/18 Rx ibuprofen 600 mg PO PRN PRN 04/08/18 04/08/18 History Allergies Allergy/AdvReac Type Severity Reaction Status Date / Time Latex, Natural Rubber Allergy Unverified 04/07/18 19:23 Penicillins Allergy Hives Unverified 04/07/18 19:23 Sulfa (Sulfonamide Allergy Hives Unverified 04/07/18 19:23 Antibiotics) oxycodone AdvReac Intermediate Nausea Unverified 04/07/18 19:23 amoxicillin AdvReac Mild stomach Unverified 12/21/18 19:23 issues Exam Narrative Exam Narrative: General: Patient appears comfortable, AAOX3, NAD Neck: Supple CV: Regular, nontachycardic, S1S2, No rubs, murmurs, or gallops. Pulmonary: Clear to auscultation bilaterally, no crackles, wheezing, or rhonchi Abdomen: + Bowel Sounds, soft, nontender, nondistended, obese in contour Vascular: No lower extremity edema Neurologic: CN II-XII grossly intact. No focal deficits. Psych: Normal mood and affect. Results Imaging Additional studies: EXAM: CT Abdomen and Pelvis Without Contrast EXAM DATE/TIME: 04/07/2018 9:28 PM CLINICAL HISTORY: 27 years old, male; Pain; Abdominal pain TECHNIQUE: Axial computed tomography images of the abdomen and pelvis without contrast. Coronal and sagittal reformatted images were created and reviewed. COMPARISON: No relevant prior studies available. FINDINGS: Lower thorax: No acute findings. ABDOMEN: Liver: No mass. Gallbladder and bile ducts: No calcified stones. No ductal dilation. Pancreas: No ductal dilation. Spleen: Partially imaged spleen is enlarged, 13.9 cm in its longest span. Adrenals: No mass. Kidneys and ureters: Nonobstructing 2 mm right renal calculus. Mild right-sided hydronephrosis, there is a 2 mm calculus within distal portion of the right ureter. Stomach and bowel: No obstruction. No mucosal thickening. Appendix: No evidence of appendicitis. PELVIS: Bladder: Unremarkable as visualized. Reproductive: Unremarkable as visualized. ABDOMEN and PELVIS: Intraperitoneal space: No free air. No significant fluid collection. Bones/joints: No acute fracture. No dislocation. Soft tissues: Unremarkable. Vasculature: No abdominal aortic aneurysm. Lymph nodes: No enlarged lymph nodes. IMPRESSION: Mild right-sided hydroureteronephrosis, caused by a 2 mm calculus within the distal portion of the right ureter. Nonobstructing 2 mm calculus within the collecting system of the right kidney. No calculi elsewhere in the course of the urinary tract. Labs : 04/08/18 14:20 04/08/18 17:07 Laboratory Results - last 24 hr 04/08/18 04/08/18 04/08/18 14:20 14:20 15:26 WBC 15.26 H D RBC 5.24 Hgb 16.2 Hct 45.4 MCV 86.6 MCH 30.9 MCHC 35.7 RDW 12.6 Plt Count 278 MPV 10.0 Immature Gran % 0.2 Neutrophils % 82.0 Lymphocytes % 8.0 Monocytes % 9.4 Eosinophils % 0.3 Basophils % 0.1 Absolute Neutrophils 12.51 H Absolute Lymphocytes 1.22 Absolute Monocytes 1.43 H Absolute Eosinophils 0.05 Absolute Basophils 0.02 Sodium 140 Potassium 4.0 Chloride 103 Carbon Dioxide 26.9 Anion Gap 10.1 BUN 19 H Creatinine 2.08 H D Estimated GFR/1.73 m2 37.94 Glucose 104 H Lactate 0.8 Calcium 9.5 Urine Color Urine Clarity Urine pH Ur Specific [place] Urine Protein Urine Ketones Urine Blood Urine Nitrite Urine Bilirubin Urine Urobilinogen Ur Leukocyte Esterase Urine RBC Urine WBC Ur Epithelial Cells Urine Crystals Urine Bacteria Urine Casts Urine Mucus Urine Other Ur Culture Indicated? Urine Glucose 04/08/18 04/08/18 16:30 17:07 WBC RBC Hgb Hct MCV MCH MCHC RDW Plt Count MPV Immature Gran % Neutrophils % Lymphocytes % Monocytes % Eosinophils % Basophils % Absolute Neutrophils Absolute Lymphocytes Absolute Monocytes Absolute Eosinophils Absolute Basophils Sodium 142 Potassium 4.2 Chloride 106 Carbon Dioxide 28.6 Anion Gap 7.4 BUN 19 H Creatinine 2.07 H Estimated GFR/1.73 m2 38.15 Glucose 95 Lactate Calcium 8.8 Urine Color Yellow Urine Clarity Clear Urine pH 6.0 Ur Specific [place] 1.025 Urine Protein Negative Urine Ketones Negative Urine Blood Small H Urine Nitrite Negative Urine Bilirubin Negative Urine Urobilinogen 0.2 Ur Leukocyte Esterase Negative Urine RBC 3-5 H Urine WBC 0-2 Ur Epithelial Cells Negative Urine Crystals Negative Urine Bacteria Few Urine Casts Negative Urine Mucus Trace Urine Other Negative Ur Culture Indicated? No Urine Glucose Negative Last Vital Signs Temp 37.5 C 04/08/18 20:41 Pulse 80 04/08/18 20:41 Resp 18 04/08/18 20:41 BP 133/75 04/08/18 20:41 Pulse Ox 94 L 04/08/18 20:41
[2018-04-09] MEDS: Normal Saline 1,000 ML 150 ML IV ×2 (02:21→09:07)
[2018-04-09] MEDS: Heparin 5,000 UNITS/ML VIAL 5000 UNITS SC ×2 (04:10→12:01)
[2018-04-09 04:39] VITALS: PULSE 90; RESP 18; TEMP 37.8; O2SAT 96
[2018-04-09 05:59] LABS: Abs Immature Grans 0.02 k/cumm (0.0-0.09); Absolute Basophil Count 0.02 k/cumm (0.0-0.2); Absolute Lymphocyte Count 1.65 k/cumm (1.2-3.4); Absolute Monocyte Count 1.11 k/cumm (0.11-0.7); Basophils % 0.2; Eosinophils % 1.2; HCT 39.5 % (40.0-50.0); HGB 13.6 g/dL (13.5-17.5); Immature Grans % 0.2; Lymphocytes % 19.6; Mean Corp. HGB Concentration 34.4 g/dL (32.0-36.0); Mean Corpuscular Hemoglobin 30.8 pg (27.0-33.0); Mean Corpuscular Volume 89.6 fL (80-95); Mean Platelet Volume 10.1 fL (8.0-11.0); Monocytes % 13.2; Neutrophils % 65.6; Platelet Count 218 x1000/uL (130-400); RBC 4.41 m/cumm (4.50-6.00); RBC Distribution Width 12.7 % (11.8-14.1); White Blood Cell Count 8.41 k/cumm (4.4-10.8)
[2018-04-09 06:04] LABS: Absolute Neutrophil Count 5.52 k/cumm (1.2-6.7)
[2018-04-09 06:21] LABS: Anion Gap 8.1 mmol/L (3-11); BUN 18 mg/dL (7-18); CO2 26.9 mmol/L (21.0-32.0); CREATININE 2.01 mg/dL (0.70-1.30); Calcium 8.4 mg/dL (8.5-10.1); Chloride 106 mmol/L (98-107); Estimated GFR 39.47 (mL/min/1.73m2); Glucose 92 mg/dL (70-100); Potassium 4.3 mmol/L (3.5-5.1); Sodium 141 mmol/L (136-145)
--- NOTE | 2018-04-09 07:08 | PDOC.CMIN ---
- If Service Date Differs Date of service: 04/09/18 Time of Service: 07:08 Care Management Initial Assess REASON FOR HOSPITALIZATION:: ADALI, Nephrolithiasis PAST MEDICAL HISTORY/PAST SURGICAL HISTORY:: Cameron has a history of bipolar disorder, anxiety, asthma and learning disability. He was on a IEP throughout his years in school as well as a one on one educator. Cameron has had 11 ED visits over the past year he reports that he has a history of chronic back pain. PREVIOUS FUNCTIONAL STATUS/SOCIAL/FAMILY SUPPORTS:: Cameron lives in subsidized housing in [place], [place] with his spouse. Cameron reports severe ADHD in which he received disability for. He has a three year old daughter that is in his parents custody. He receives case management services through [facility] however denies [employer] services. He reports he is currently on probation his PO is Damian Limon. Other support people include Margoth Ernst, [facility], and therapist Reyna Snow. He reports that his community support person takes him to and from appointments. Cameron also received services through [employer], and human services. CURRENT FUNCTIONAL STATUS:: Cameron is alert and engaged in conversation with CM. He complains consistantly about his current housing concerns.CM encouraged him to outreach his self identified support system including chronic care coordiantor, [facility], DOC, NECKA and community connections. Cameron reports that he has been to the ED 11 times over the past year r/t not being able to obtain his medication r/t copays or schedule appointment with primary care. ADVANCE DIRECTIVES:: None on file at [facility] Has patient been provided with information about the portal?: Yes Did the patient sign up for the portal?: No CODE STATUS:: Full Code INSURANCE COVERAGE / FINANCIAL ISSUES:: Medicaid and Medicare CURRENT HOME/COMMUNITY SERVICES/EQUIPMENT:: [facility] behavioral health. CM faxed referral to community connections. PRIMARY CARE PHYSICIAN:: POTENTIAL DISCHARGE NEEDS:: Follow up appointment scheduled with [facility], transportation to and from appointment, and scheduling for pharmacy med pickup driver. PATIENT/FAMILY EDUCATION NEEDS:: Discharge education. limitations and follow up plan of care ANTICIPATED BARRIERS TO DISCHARGE:: None apparent at this time TRANSPORTATION:: Via private car with with friend at time of discahrge. PLAN:: Cameron will be discharged home when medically ready anticipate in the next 24 hours. Per report he has passed the kidney stone and his kindey function is being monitored. His spouse is with him and appears supportive. They will need transportation at time of discharge. Cameron agrees to referral to [facility] and Chronic physician primary care sports medicine for ongoing community case management.
[2018-04-09 07:50] VITALS: BP 120/64; PULSE 84; RESP 18; TEMP 37.1; O2SAT 94
[2018-04-09] MEDS: ARIPiprazole 5 MG TAB PO (08:05)
[2018-04-09] MEDS: Tamsulosin 0.4 MG CAPCR PO (08:05)
[2018-04-09 11:55] VITALS: BP 110/65; PULSE 80; RESP 20; TEMP 36.5; O2SAT 93
[2018-04-09 15:43] VITALS: BP 114/68; PULSE 79; RESP 18; TEMP 37.4; O2SAT 96
[2018-04-09 16:20] LABS: BUN 16 mg/dL (7-18); CREATININE 1.62 mg/dL (0.70-1.30); Calcium 8.2 mg/dL (8.5-10.1); Chloride 108 mmol/L (98-107); Estimated GFR 50.63 (mL/min/1.73m2); Glucose 85 mg/dL (70-100); Potassium 3.8 mmol/L (3.5-5.1); Sodium 141 mmol/L (136-145)
--- NOTE | 2018-04-09 17:02 | DSE_ITS ---
Date of service: 04/09/18 Time of Service: 16:58 DS: Diagnosis Discharge Diagnosis (1) Nephrolithiasis: Status: Acute (2) ADALI (acute kidney injury): Status: Acute (3) Bipolar 1 disorder: Status: Chronic (4) Asthma: Status: Chronic Discharge Plan Disposition Patient Disposition: HOME Condition: Stable Discharge Details Reason For Visit: NEPHROLITHIASIS, ADALI Admit Date/Time: 04/08/18 19:52 Admit Provider: Rigo Solis Attending Provider: Rigo Solis Primary Care Provider: Liz Whitaker Hospital Course Hospital Course: Mr Real is a 27 year old male who was observed at [facility] overnight 04/08/18 - 04/09/18 after he presented to ED with symptomatic nephrolithiasis, mild hydronephrosis and ADALI. The morning of 04/09/18, he passed the kidney stone, with resolution of his flank pain and significant improvement of his kidney function on labs. While he did have a fever, there is no evidence of UTI on his urinalysis - therefore, he was not treated with antibiotics, and his fever was thought to be part of SIRS due to the nephrolithiasis. Stone analysis is ordered and pending. At this time, patient is medically stable to be discharged home to follow up with PCP. He is being instructed to drink plenty of water at home. Home Meds and New Rx's Prescriptions: Continued aripiprazole [Abilify] 5 MG tablet 5 mg PO DAILY RF: 0 ProAir HFA 200 PUFF HFA aerosol inhaler 8.5 gm Inhalation PRN PRNRF: 0 ranitidine HCl [Zantac] 150 MG tablet 150 mg PO BID Qty: 14 RF: 0 Discontinued tamsulosin [Flomax] 0.4 mg capsule 0.4 mg PO DAILY Qty: 14 RF: 0 ibuprofen 600 mg Tablet 600 mg PO PRN PRNRF: 0 Discharge Instructions Instructions: Acute Kidney Injury (DC), Kidney Stones (DC) Additional Instructions: Drink plenty of water. Follow up with your PCP in 1-2 weeks. Return to the hospital with any fever, bleeding, chest pain, shortness of breath, or any recurrence of symptoms. Referrals: Liz Whitaker [Primary Care Provider] - Activity:: Activity as Tolerated Equipment/Supplies:: No Equipment Needed Diet:: As Tolerated Discharge Orders Discharge Orders: Discharge Order (Routine); Ordered 04/09/18 Ordered By: Oksana Zuniga Other Ambulatory Orders: Basic Metabolic Panel (Routine) Timeframe: 1 Week Location: Determined by Patient Ordered By: Oksana Zuniga Exam Narrative Exam Narrative: General: A&Ox3, NAD HEENT: EOMI, MMM Heart: RRR Lungs: CTAB GI: abdomen soft, nontender, nondistended Extremities: no e/c/c BLE's DS: Data Vitals/I&O Vitals and I&O: Vital Signs Temperature 37.4 C 04/09/18 15:43 Temperature Source Tympanic 04/09/18 15:43 Pulse 79 04/09/18 15:43 Pulse Rhythm Regular 04/09/18 08:40 Respiratory Rate 18 04/09/18 15:43 Respiratory Effort Non-Labored 04/09/18 08:40 Respiratory Depth Normal 04/09/18 08:40 Respiratory Pattern Normal 04/09/18 08:40 Blood Pressure 114/68 04/09/18 15:43 Pulse Oximetry 96 04/09/18 15:43 Oxygen Delivery Method Room Air 04/09/18 15:43 Oxygen Flow Rate 0 04/09/18 15:43 Pain Level 0 04/09/18 15:43 Intake & Output 04/08/18 04/09/18 04/09/18 23:59 11:59 23:59 Intake Total 1999 2250 / 3550 1300 / 3550 Output Total 500 / 500 Balance 1999 1750 / 3050 1300 / 3050 Weight 131.6 kg Intake: IV 1999 2000 / 3000 1000 / 3000 Oral 250 / 550 300 / 550 Output: Urine 500 / 500 Other: Urine Color Yellow Urine Appearance Clear Urine Odor None Strain Urine Result Negative-No Stones/Gravel Comment no stones Voiding Methods Urinal Toilet Pending studies at discharge: stone analysis pending Labs on day of discharge: Labs from last 24 hours 04/09/18 04/09/18 04/09/18 16:02 05:30 05:30 WBC 8.41 D RBC 4.41 L Hgb 13.6 D Hct 39.5 L MCV 89.6 D MCH 30.8 MCHC 34.4 RDW 12.7 Plt Count 218 MPV 10.1 Immature Gran % 0.2 Neutrophils % 65.6 Lymphocytes % 19.6 Monocytes % 13.2 Eosinophils % 1.2 Basophils % 0.2 Absolute Neutrophils 5.52 Absolute Lymphocytes 1.65 Absolute Monocytes 1.11 H Absolute Eosinophils 0.10 Absolute Basophils 0.02 Sodium 141 141 Potassium 3.8 4.3 Chloride 108 H 106 Carbon Dioxide 26.0 26.9 Anion Gap 7.0 8.1 BUN 16 18 Creatinine 1.62 H 2.01 H Estimated GFR/1.73 m2 50.63 39.47 Glucose 85 92 Calcium 8.2 L 8.4 L Stone Analysis Stone Source Stone Constituent 1 Stone Constituent 2 Stone Constituent 3 Major Stone Nidus Minor Stone Nidus Major Stone Shell Minor Stone Shell Stone Comment 04/09/18 04/08/18 03:50 17:07 WBC RBC Hgb Hct MCV MCH MCHC RDW Plt Count MPV Immature Gran % Neutrophils % Lymphocytes % Monocytes % Eosinophils % Basophils % Absolute Neutrophils Absolute Lymphocytes Absolute Monocytes Absolute Eosinophils Absolute Basophils Sodium 142 Potassium 4.2 Chloride 106 Carbon Dioxide 28.6 Anion Gap 7.4 BUN 19 H Creatinine 2.07 H Estimated GFR/1.73 m2 38.15 Glucose 95 Calcium 8.8 Stone Analysis Pending Stone Source Pending Stone Constituent 1 Pending Stone Constituent 2 Pending Stone Constituent 3 Pending Major Stone Nidus Pending Minor Stone Nidus Pending Major Stone Shell Pending Minor Stone Shell Pending Stone Comment Pending [facility] Medical History Nephrolithiasis (Acute) Bipolar 1 disorder (Chronic) Anxiety (Chronic) Asthma (Chronic) Anxiety (Chronic) Asthma (Chronic) Bipolar disorder (Chronic) Surgical History History of ankle surgery (Acute) History of knee surgery (Acute) Social History Smoking/Tobacco Use Status: Never additional social history: The patient is and has 1 daughter. He is on disability lifelong for learning disability. Reports occasional tobacco use, and no alcohol use. He denies illicit drug use.
[2018-04-14 12:28] LABS: Source: Passed Stone
== END 2018-04-09 17:39 | disposition home or self-care (01) ==
LOC: ER 20:29 → MS 04-09 17:02
PROVIDERS: Admitting Provider Internal Medicine; Emergency Provider Physician Assistant; PCP Family Medicine; Visit Provider Internal Medicine
DX: N20.0 Calculus of kidney (principal); N17.9 Acute kidney failure, unspecified; R65.10 Systemic inflammatory response syndrome (SIRS) of non-infectious origin without acute organ dysfunction; F31.89 Other bipolar disorder
CPT/HCPCS: 36415; 80048; 96361; 96374; 96375; 96376; 99217; 99219; 99285; 81003; 81015; 82360; 83605; 85025; 99284; G0378; J1644; J1885; J2405

== ENCOUNTER 2018-04-24 12:51 | Outpatient (CLI) | payer MEDICARE, MEDICAID, SELFPAY ==
[2018-04-24 14:13] LABS: Anion Gap 5.9 mmol/L (3-11); BUN 11 mg/dL (7-18); CO2 32.1 mmol/L (21.0-32.0); CREATININE 1.25 mg/dL (0.70-1.30); Calcium 9.4 mg/dL (8.5-10.1); Chloride 103 mmol/L (98-107); Glucose 104 mg/dL (70-100); Potassium 4.1 mmol/L (3.5-5.1); Sodium 141 mmol/L (136-145)
== END 2018-04-24 13:11 ==
PROVIDERS: PCP Family Medicine; Visit Provider Internal Medicine
DX: N17.9 Acute kidney failure, unspecified (principal); N20.0 Calculus of kidney
CPT/HCPCS: 36415; 80048

== ENCOUNTER → 2018-05-15 08:03 | Outpatient (BNVA) | payer MEDICARE, MEDICAID, SELFPAY | PROVIDERS: PCP Family Medicine; Visit Provider Urology | DX: N20.0 Calculus of kidney (principal); N20.1 Calculus of ureter | CPT/HCPCS: 99203; 99214 ==

== ENCOUNTER 2018-05-29 23:04 | Emergency (ER) | payer MEDICARE, MEDICAID, SELFPAY ==
[2018-05-29 23:05] VITALS: BP 157/82; PULSE 80; RESP 16; TEMP 36.6; O2SAT 96
--- NOTE | 2018-05-29 23:13 | W.ED.GENAD ---
Discharge Plan Disposition Patient Disposition: HOME Condition: Good Discharge Details Chief Complaint: Abd Prob Clinical Impression: Abdominal pain Reason For Visit: SULY Primary Care Provider: Liz Whitaker ED Provider: Thai Morin Home Meds and New Rx's Prescriptions: New lidocaine [Lidoderm] 1 PATCH patch 1 patch Topical Q24H Qty: 4 RF: 0 No Action aripiprazole [Abilify] 5 MG tablet 5 mg PO DAILY RF: 0 ProAir HFA 200 PUFF HFA aerosol inhaler 8.5 gm Inhalation PRN PRNRF: 0 Discharge Instructions Instructions: Abdominal Pain (ED) Additional Instructions: If you have return of your pain please take Tylenol, or Motrin. Please use Lidoderm patch as directed. if you notice any worsening of your symptoms, or any new symptoms such as vomiting, diarrhea, fever, chills, shortness of breath, chest pain, numbness, weakness, or fainting , please return immediately to the emergency department for reevaluation. Please follow up with your primary care provider as soon as possible for reassessment and reevaluation. As always, it was a pleasure participating in your medical care today. Referrals: Liz Whitaker [Primary Care Provider] - Medical Decision Making This is a 27-year-old male who presents for evaluation of right-sided flank pain. He has a history of kidney stones, and states that the symptoms he is having now is consistent with his previous episodes of kidney stones. Demonstrates no red flags of testicular tenderness, fever, vomiting or diarrhea. He does have some right lower quadrant abdominal pain. Differential is certainly highest for urolithiasis however acute appendicitis is also on the differential although less likely. We will get a CT scan to rule this out, rehydrate, treat his pain, and evaluate for any infectious etiology. Of note he does have follow-up with Dr. Bray but did miss his appointment today. 12:[address] scan has returned and there is no evidence of acute process. Patient's laboratory workup has returned with no significant abnormalities whatsoever. No evidence of urinary tract infection or hematuria. On reassessment the patient's pain is completely improved and he is feeling well, tolerating p.o., and showing no other complaints. He is able to ambulate well, and shows no signs of distress. He states that all of his pain is completely gone. I am unsure as to the exact etiology of his symptoms. It may have been from a past kidney stone, muscle sprain, or mild gastritis. Feel the patient is appropriate for discharge home with close follow-up. We discussed red flags which return the patient understands. I have extensively reviewed the treatment plan and discharge instructions with the patient and their family. I have addressed all patient concerns at this time. The patient and family was made aware of what symptoms to monitor for that would warrant a return to the emergency department. Discussed the plan with the patient and family, they demonstrate verbal understanding and agreement with our assessment and plan at this time. FINDINGS: Lower thorax: No acute findings. ABDOMEN: Liver: Hepatic steatosis. Gallbladder and bile ducts: Normal. No calcified stones. No ductal dilation. Pancreas: Normal. No ductal dilation. Spleen: Normal. No splenomegaly. Adrenals: Normal. No mass. Kidneys and ureters: Nonobstructing right renal calculus. No obstructing urinary calculus or hydronephrosis. Stomach and bowel: Normal. No obstruction. No mucosal thickening. Appendix: No evidence of appendicitis. PELVIS: Bladder: Unremarkable as visualized. Reproductive: Unremarkable as visualized. ABDOMEN and PELVIS: Intraperitoneal space: Normal. No free air. No significant fluid collection. Bones/joints: No acute fracture. No dislocation. Soft tissues: Unremarkable. Vasculature: Normal. No abdominal aortic aneurysm. Lymph nodes: Normal. No enlarged lymph nodes. IMPRESSION: No acute finding. Dictated and Authenticated by: Kuldeep Irvin MD. [facility] General Date/Time Provider Initiated Documentation: 05/29/18 23:09. [facility] Narrative: This is a 27-year-old male with a past medical history of bipolar disease, and kidney stones, who presents today for evaluation of right flank pain. Patient states that his symptoms began earlier this evening with right flank and right lower quadrant abdominal pain. Does not radiate to his groin however he states that it feels just like his previous episodes of kidney stones. He does admit to urinary frequency but denies any dysuria. He denies any hematuria. He denies any left-sided flank or abdominal pain. He denies any penile discharge. He denies any vomiting or diarrhea. Last time he ate was roughly 12 hours ago. He denies any previous abdominal surgeries. He has not taken anything for the pain. He denies any modifying factors. He denies any IV or illicit drug use, pertinent family history, or recent surgery. Of note he was supposed to see Dr. Bray this morning but he missed his appointment. Related Data Home Medications Medication Instructions Recorded Confirmed aripiprazole [Abilify] 5 mg PO DAILY 02/25/16 05/30/18 ProAir HFA 8.5 gm INHALATION PRN PRN 07/28/17 05/30/18 lidocaine [Lidoderm] 1 patch TOPICAL Q24H #4 patch 05/30/18 Previous Rx's Medication Instructions Recorded lidocaine [Lidoderm] 1 patch TOPICAL Q24H #4 patch 05/30/18 Allergies Allergy/AdvReac Type Severity Reaction Status Date / Time Latex, Natural Rubber Allergy Unverified 05/30/18 00:11 Penicillins Allergy Hives Unverified 05/30/18 00:11 Sulfa (Sulfonamide Allergy Hives Unverified 05/30/18 00:11 Antibiotics) oxycodone AdvReac Intermediate Nausea Unverified 05/30/18 00:11 amoxicillin AdvReac Mild stomach Unverified 05/30/18 00:11 issues General Stated Complaint: Abd Prob BRENDEN: 3 Review of Systems Review of Systems All systems reviewed & are unremarkable except as noted in HPI and below PFSH Social History Smoking and Tabacco status: Never additional social history: The patient is and has 1 daughter. He is on disability lifelong for learning disability. Reports occasional tobacco use, and no alcohol use. He denies illicit drug use. Exam Narrative Exam Narrative: 1.Const: Well-nourished, Well-developed, appearing stated age 2.Eyes: PERRL, no conjunctival injection, and symmetrical lids. 3.ENT: Atraumatic external nose and ears. Moist MM. Neck: Symmetric, trachea midline, No thyromegaly. 4.CVS: +S1/S2, No murmurs or gallops. Peripheral pulses 2+ and equal in all extremities. Brisk capillary refill in all extremities. 5.RESP: Unlabored respiratory effort. Clear to auscultation bilaterally. No wheezes rales or rhonchi 6.GI: Soft, Nontender/Nondistended, No hepatosplenomegaly. No guarding or rebound. Minimal right lower quadrant tenderness. Reproducible right-sided flank tenderness on percussion. Genital exam was performed with female nurse at bedside and family member at bedside, patient demonstrates bilaterally descended testicles, circumcised penis, no testicular tenderness. Normal cremasteric reflex bilaterally. 7.MSK: Normocephalic/Atraumatic, Extremities w/o deformity or ttp No cyanosis or clubbing, Normal movement of all extremities 8.Skin: Warm, Dry. No rashes or lesions. 9.Neuro: scientologist II-XII grossly intact. Sensation grossly intact, no focal neurologic deficits. 10.Psych: (AAO) x3. Appropriate mood and affect Course Vital Signs Temperature 36.6 C 05/29/18 23:05 Pulse 80 05/29/18 23:05 Respiratory Rate 16 05/29/18 23:05 Blood Pressure 157/82 H 05/29/18 23:05 Pulse Oximetry 96 05/29/18 23:05 Temperature 36.6 C 05/29/18 23:05 Temperature Source Skin 05/29/18 23:05 Pulse 80 05/29/18 23:05 Respiratory Rate 16 05/29/18 23:05 Blood Pressure 157/82 H 05/29/18 23:05 Blood Pressure Position Sitting 05/29/18 23:05 Pulse Oximetry 96 05/29/18 23:05 Oxygen Delivery Method Room Air 05/29/18 23:05 Oxygen Flow Rate 0 05/29/18 23:05
[2018-05-29] MEDS: Acetaminophen 500 MG TAB 1000 MG PO (23:23)
[2018-05-29] MEDS: Ketorolac 30 MG/ML VIAL 15 MG IVP (23:23)
[2018-05-29] MEDS: Normal Saline 1,000 ML 1000 ML IV (23:24)
[2018-05-29 23:35] LABS: Bilirubin Negative (Negative); Blood Negative (Negative); Clarity Clear; Glucose Negative (Negative); Ketones Negative (Negative); Leukocyte Esterase Negative (Negative); Nitrite Negative (Negative); Specific Gravity 1.025 (1.005-1.025); Urobilinogen 0.2 EU/dL (Up TO 0.2)
[2018-05-29 23:37] LABS: Abs Immature Grans 0.02 k/cumm (0.0-0.09); Absolute Eosinophil Count 0.23 k/cumm (0.0-0.7); Absolute Monocyte Count 1.34 k/cumm (0.11-0.7); Absolute Neutrophil Count 6.49 k/cumm (1.2-6.7); Basophils % 0.4; Eosinophils % 2.1; HCT 44.2 % (40.0-50.0); HGB 15.6 g/dL (13.5-17.5); Immature Grans % 0.2; Lymphocytes % 27.3; Mean Corp. HGB Concentration 35.3 g/dL (32.0-36.0); Mean Corpuscular Hemoglobin 30.6 pg (27.0-33.0); Mean Corpuscular Volume 86.8 fL (80-95); Mean Platelet Volume 9.9 fL (8.0-11.0); Platelet Count 253 x1000/uL (130-400); RBC 5.09 m/cumm (4.50-6.00); White Blood Cell Count 11.19 k/cumm (4.4-10.8)
[2018-05-29 23:39] LABS: Absolute Basophil Count 0.04 k/cumm (0.0-0.2); Absolute Lymphocyte Count 3.05 k/cumm (1.2-3.4)
--- NOTE | 2018-05-29 23:40 | DI.CT_ITS ---
SYMPTOM/DIAGNOSIS: H/O STONES, RT FLANK PAIN, ? STONE RENAL COLIC CT: Routine examination was performed. Comparison is made with 04/07/18. Lack of IV contrast does limit evaluation of the abdominal and pelvic organs. The visualized lung bases are clear. There does appear to be decreased attenuation of the liver suggesting hepatic steatosis. The unenhanced pancreas, spleen, adrenal glands, gallbladder and bile ducts are unremarkable. There is a non obstructing 2 mm. stone in the mid pole of the right kidney. No evidence of ureterolithiasis or hydronephrosis is seen on the right. The left kidney shows no evidence of nephrolithiasis or hydronephrosis. The urinary bladder is intact. The reproductive organs are unremarkable. The bowel shows no evidence of obstruction or inflammation. There is a normal appendix. The aorta is of normal caliber. No significant abdominal or pelvic adenopathy, ascites or pneumoperitoneum is seen. No acute osseous abnormality is identified. IMPRESSION: No evidence of obstructive uropathy. Right nephrolithiasis.
[2018-05-29 23:47] LABS: ALT 56 U/L (12-78); AST 23 U/L (15-37); Albumin 3.8 g/dL (3.4-5.0); Alkaline Phosphatase 119 U/L (46-116); Anion Gap 7.5 mmol/L (3-11); BUN 19 mg/dL (7-18); Bilirubin, Total 0.3 mg/dL (0.2-1.0); CO2 28.5 mmol/L (21.0-32.0); CREATININE 1.16 mg/dL (0.70-1.30); Calcium 9.4 mg/dL (8.5-10.1); Chloride 103 mmol/L (98-107); Glucose 97 mg/dL (70-100); Sodium 139 mmol/L (136-145)
[2018-05-29] MEDS: Lidocaine 5% Patch 1 PATCH TP (23:51)
--- NOTE | 2018-05-30 00:24 | DI.VRAD_ITS ---
EXAM: CT Abdomen and Pelvis Without Contrast EXAM DATE/TIME: 05/29/2018 11:12 PM CLINICAL HISTORY: 27 years old, male; Pain; Other: R flank pain; Patient HX: R flank pain, HX of stones TECHNIQUE: Axial computed tomography images of the abdomen and pelvis without contrast. All CT scans at this facility use at least one of these dose optimization techniques: automated exposure control; mA and/or kV adjustment per patient size (includes targeted exams where dose is matched to clinical indication); or iterative reconstruction. Coronal and sagittal reformatted images were created and reviewed. COMPARISON: CT renal colic wo 04/07/2018 9:39 PM FINDINGS: Lower thorax: No acute findings. ABDOMEN: Liver: Hepatic steatosis. Gallbladder and bile ducts: Normal. No calcified stones. No ductal dilation. Pancreas: Normal. No ductal dilation. Spleen: Normal. No splenomegaly. Adrenals: Normal. No mass. Kidneys and ureters: Nonobstructing right renal calculus. No obstructing urinary calculus or hydronephrosis. Stomach and bowel: Normal. No obstruction. No mucosal thickening. Appendix: No evidence of appendicitis. PELVIS: Bladder: Unremarkable as visualized. Reproductive: Unremarkable as visualized. ABDOMEN and PELVIS: Intraperitoneal space: Normal. No free air. No significant fluid collection. Bones/joints: No acute fracture. No dislocation. Soft tissues: Unremarkable. Vasculature: Normal. No abdominal aortic aneurysm. Lymph nodes: Normal. No enlarged lymph nodes. IMPRESSION: No acute finding. Dictated and Authenticated by: Kuldeep Irvin MD. Ordering:ALBERTO Andre MD
[2018-05-30 00:47] VITALS: BP 110/75; PULSE 74; RESP 18; TEMP 36.6; O2SAT 95
== END 2018-05-30 00:46 | disposition home or self-care (01) ==
LOC: ER 05-30 00:51
PROVIDERS: Emergency Provider Student in an Organized Health Care Education/Training Program; PCP Family Medicine
DX: R10.9 Unspecified abdominal pain (principal)
CPT/HCPCS: 80053; 96361; 96374; 99284; 74176; 81003; 85025; J1885

== ENCOUNTER 2018-09-04 18:13 | Emergency (ER) | payer MEDICARE, MEDICAID, SELFPAY ==
--- NOTE | 2018-09-04 18:32 | DI.RAD_ITS ---
SYMPTOM/DIAGNOSIS: CRUSHED IN DOOR, PAIN RIGHT HAND: There is no evidence of a fracture or dislocation. RIGHT WRIST: No bony or joint abnormality is seen.
--- NOTE | 2018-09-04 19:18 | DI.VRAD_ITS ---
EXAM: XR Right Wrist Complete, 3 or more Views EXAM DATE/TIME: 09/04/2018 6:33 PM CLINICAL HISTORY: 28 years old, male; Pain; Hand; Right TECHNIQUE: Imaging protocol: XR Right wrist. Views: 3 or more views. COMPARISON: No relevant prior studies available. FINDINGS: Bones/joints: No fractures. Carpal relationships are normal. Distal radioulnar alignment is normal. No blastic or lytic lesions. No periostitis or osteolysis. No gross erosive changes. Soft tissues: No gross soft tissue abnormalities. No radiopaque foreign bodies. IMPRESSION: No acute findings. Dictated and Authenticated by: Jose Garcia MD. Ordering:ALBERTO Andre MD
--- NOTE | 2018-09-04 19:19 | DI.VRAD_ITS ---
EXAM: XR Right Hand Complete, 3 or more Views EXAM DATE/TIME: 09/04/2018 6:33 PM CLINICAL HISTORY: 28 years old, male; Pain; Hand; Right TECHNIQUE: Imaging protocol: XR Right hand. Views: 3 or more views COMPARISON: No relevant prior studies available. FINDINGS: Bones/joints: No fractures. No blastic or lytic lesions. Joint spaces are well aligned. Soft tissues: No foreign bodies. No gross soft tissue abnormalities. Other findings: No periostitis. IMPRESSION: No acute osseous abnormalities. Dictated and Authenticated by: Jose Garcia MD. Ordering:ALBERTO Andre MD
[2018-09-04] MEDS: Acetaminophen 500 MG TAB 1000 MG PO (19:31)
[2018-09-04] MEDS: Ibuprofen 800 MG TAB PO (19:31)
[2018-09-04] MEDS: Lidocaine 5% Patch 1 PATCH TP (19:31)
[2018-09-04 19:32] VITALS: BP 120/80; PULSE 85; RESP 18; TEMP 36; O2SAT 95
--- NOTE | 2018-09-04 19:40 | ED.GENADUL_ITS ---
Discharge Plan Disposition Patient Disposition: HOME Condition: Good Discharge Details Chief Complaint: Orthopedic Clinical Impression: Hand sprain, Contusion Primary Care Provider: Liz Whitaker ED Provider: Thai Morin Home Meds and New Rx's Prescriptions: New acetaminophen [Mapap Extra Strength] 500 MG tablet 1,000 mg PO Q6H 5 Days Qty: 60 RF: 0 lidocaine [Lidoderm] 1 PATCH patch 1 patch Topical Q24H Qty: 4 RF: 0 ibuprofen [Motrin IB] 200 MG tablet 600 mg PO Q6H 5 Days Qty: 60 RF: 0 No Action aripiprazole [Abilify] 5 MG tablet 5 mg PO DAILY RF: 0 ProAir HFA 200 PUFF HFA aerosol inhaler 8.5 gm Inhalation PRN PRNRF: 0 lidocaine [Lidoderm] 1 PATCH patch 1 patch Topical Q24H Qty: 4 RF: 0 Discharge Instructions Instructions: Contusion in Adults (ED) Additional Instructions: Please use ice, Tylenol, and Motrin as needed for the pain. Use the wrist splint as needed for comfort. If you notice any worsening of your symptoms, or any new symptoms such as vomiting, diarrhea, fever, chills, shortness of breath, chest pain, numbness, weakness, or fainting , please return immediately to the emergency department for reevaluation. Please follow up with your primary care provider as soon as possible for reassessment and reevaluation. As always, it was a pleasure participating in your medical care today. Referrals: Liz Whitaker [Primary Care Provider] - Discharge Data Discharge Date/Time-TO BE ENTERED AT DEPARTURE: 09/04/18 19:55 Medical Decision Making This is a pleasant 28-year-old male who presents with mild pain in his right dominant hand after having it hit by a door. Exam demonstrates mild tenderness in the second third and fourth metacarpals, no snuffbox tenderness, normal movement and sensation. No neurovascular compromise. X-ray reveals no evidence of fracture. Lidoderm patch was placed and the patient has complete resolution of his pain, is able to demonstrate normal movement without any pain or difficulty. We will give a wrist splint for comfort, recommend close follow-up and NSAIDs. I have extensively reviewed the treatment plan and discharge instructions with the patient and their family. I have addressed all patient concerns at this time. The patient and family was made aware of what symptoms to monitor for that would warrant a return to the emergency department. Discussed the plan with the patient and family, they demonstrate verbal understanding and agreement with our assessment and plan at this time. Exam(s) EXAM: XR Right Hand Complete, 3 or more Views EXAM DATE/TIME: 09/04/2018 6:33 PM CLINICAL HISTORY: 28 years old, male; Pain; Hand; Right TECHNIQUE: Imaging protocol: XR Right hand. Views: 3 or more views COMPARISON: No relevant prior studies available. FINDINGS: Bones/joints: No fractures. No blastic or lytic lesions. Joint spaces are well aligned. Soft tissues: No foreign bodies. No gross soft tissue abnormalities. Other findings: No periostitis. IMPRESSION: No acute osseous abnormalities. Dictated and Authenticated by: Jose Garcia MD. Ordering:ALBERTO Andre MD EXAM: XR Right Wrist Complete, 3 or more Views EXAM DATE/TIME: 09/04/2018 6:33 PM CLINICAL HISTORY: 28 years old, male; Pain; Hand; Right TECHNIQUE: Imaging protocol: XR Right wrist. Views: 3 or more views. COMPARISON: No relevant prior studies available. FINDINGS: Bones/joints: No fractures. Carpal relationships are normal. Distal radioulnar alignment is normal. No blastic or lytic lesions. No periostitis or osteolysis. No gross erosive changes. Soft tissues: No gross soft tissue abnormalities. No radiopaque foreign bodies. IMPRESSION: No acute findings. Dictated and Authenticated by: Jose Garcia MD. Ordering:ALBERTO Andre MD HPI General Date/Time Provider Initiated Documentation: 09/04/18 18:28 . HPI Narrative: This is a pleasant 28-year-old male who presents today for contusion to his right hand. He is right-hand dominant. States that his hand got hit by a door as he was leaving. He has mild pain in the hand itself as well as the distal wrist. He denies any numbness tingling or weakness. He has taken no medication for the pain. He denies any other complaints or associated factors. He denies previous injury to the area. Related Data Home Medications Medication Instructions Recorded Confirmed aripiprazole [Abilify] 5 mg PO DAILY 02/25/16 05/30/18 ProAir HFA 8.5 gm INHALATION PRN PRN 07/28/17 05/30/18 lidocaine [Lidoderm] 1 patch TOPICAL Q24H #4 patch 05/30/18 acetaminophen [Mapap Extra 1,000 mg PO Q6H 5 Days #60 tab 09/04/18 Strength] ibuprofen [Motrin Ib] 600 mg PO Q6H 5 Days #60 tab 09/04/18 lidocaine [Lidoderm] 1 patch TOPICAL Q24H #4 patch 09/04/18 Previous Rx's Medication Instructions Recorded lidocaine [Lidoderm] 1 patch TOPICAL Q24H #4 patch 05/30/18 acetaminophen [Mapap Extra 1,000 mg PO Q6H 5 Days #60 tab 09/04/18 Strength] ibuprofen [Motrin Ib] 600 mg PO Q6H 5 Days #60 tab 09/04/18 lidocaine [Lidoderm] 1 patch TOPICAL Q24H #4 patch 09/04/18 Allergies Allergy/AdvReac Type Severity Reaction Status Date / Time Latex, Natural Rubber Allergy Unverified 05/30/18 00:11 Penicillins Allergy Hives Unverified 05/30/18 00:11 Sulfa (Sulfonamide Allergy Hives Unverified 05/30/18 00:11 Antibiotics) oxycodone AdvReac Intermediate Nausea Unverified 05/30/18 00:11 amoxicillin AdvReac Mild stomach Unverified 05/30/18 00:11 issues General Stated Complaint: Orthopedic BRENDEN: 4 Review of Systems Review of Systems All systems reviewed & are unremarkable except as noted in HPI and below PFSH Social History Smoking/Tobacco Use Status: Never Drug use: Never Do you feel safe in your relationship?: Yes Additional Social history: The patient is and has 1 daughter. He is on disability lifelong for learning disability. Reports occasional tobacco use, and no alcohol use. He denies illicit drug use. Exam Narrative Exam Narrative: 1.Const: Well-nourished, Well-developed, appearing stated age 2.Eyes: PERRL, no conjunctival injection, and symmetrical lids. 3.ENT: Atraumatic external nose and ears. Moist MM. Neck: Symmetric, trachea midline, No thyromegaly. 4.CVS: +S1/S2, No murmurs or gallops. Peripheral pulses 2+ and equal in all extremities. Brisk capillary refill in all extremities. 5.RESP: Unlabored respiratory effort. Clear to auscultation bilaterally. No wheezes rales or rhonchi 6.GI: Soft, Nontender/Nondistended, No hepatosplenomegaly. No guarding or rebound. 7.MSK: Normocephalic/Atraumatic, Extremities w/o deformity. Mild tenderness on palpation of the proximal second third and fourth metacarpals. No cyanosis or clubbing, Normal movement of all extremities. Symmetrically palpable radial and ulnar pulses. Capillary refill less than 2 seconds to all digits. Intact sensation to light touch of the radial, median and ulnar nerves demonstrated by testing in the dorsal web space of the thumb, the distal palmar aspect of the index finger, and the lateral surface of the fifth finger. 2 point discrimination intact to 5mm (up to 6mm can be normal in digits 3-5) of discrimination in the affected digit. Intact motor function of the radial, median and ulnar nerves demonstrated by strength of extension of the isolated distal joint of the index finger, hand rn social services, and spreading of the 2nd through 5th digits. Intact recurrent median nerve as demonstrated by ability to move thumb fully through opposition, abduction and flexion. No snuffbox tenderness. 8.Skin: Warm, Dry. No rashes or lesions. 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 Sensation grossly intact, no focal neurologic deficits. 10.Psych: (AAO) x3. Appropriate mood and affect Course Vital Signs Temperature 36 C L 09/04/18 19:32 Pulse 85 09/04/18 19:32 Respiratory Rate 18 09/04/18 19:32 Blood Pressure 120/80 09/04/18 19:32 Pulse Oximetry 95 09/04/18 19:32 Temperature 36 C L 09/04/18 19:32 Temperature Source Temporal Artery Scan 09/04/18 19:32 Pulse 85 09/04/18 19:32 Respiratory Rate 18 09/04/18 19:32 Blood Pressure 120/80 09/04/18 19:32 Pulse Oximetry 95 09/04/18 19:32 Oxygen Delivery Method Room Air 09/04/18 19:32 Oxygen Flow Rate 0 09/04/18 19:32
== END 2018-09-04 19:55 | disposition home or self-care (01) ==
PROVIDERS: Emergency Provider Student in an Organized Health Care Education/Training Program; PCP Family Medicine
DX: S63.91XA Sprain of unspecified part of right wrist and hand, initial encounter (principal); S60.221A Contusion of right hand, initial encounter; W22.8XXA Striking against or struck by other objects, initial encounter
CPT/HCPCS: 99284; 73110; 73130; L3908

== ENCOUNTER 2018-09-22 21:26 | Emergency (ER) | payer MEDICARE, MEDICAID, SELFPAY ==
[2018-09-22 21:31] VITALS: BP 118/81; PULSE 94; RESP 16; TEMP 36.5; O2SAT 95
--- NOTE | 2018-09-22 21:45 | W.ED.GENAD ---
Discharge Plan Disposition Patient Disposition: HOME Condition: Fair Discharge Details Chief Complaint: RashLesion Clinical Impression: Tinea pedis Primary Care Provider: Liz Whitaker ED Provider: Atiya Ruano Home Meds and New Rx's Prescriptions: Continued aripiprazole [Abilify] 5 MG tablet 5 mg PO DAILY RF: 0 lidocaine [Lidoderm] 1 PATCH patch 1 patch Topical Q24H Qty: 4 RF: 0 albuterol sulfate [ProAir HFA] 200 PUFF HFA aerosol inhaler 8.5 gm Inhalation PRN PRNRF: 0 lidocaine [Lidoderm] 1 PATCH patch 1 patch Topical Q24H Qty: 4 RF: 0 No Action prednisone 50 MG tablet 50 mg PO DAILY Qty: 5 RF: 0 Discharge Instructions Instructions: Tinea Pedis (ED) Additional Instructions: Use Lotrimin cream as directed on packaging. Try to let your feet to air as much as possible. Keep clean. Follow up with primary care in 2 weeks if not improving. If you develop new/worsening symptoms please seek care urgently once again. Referrals: Liz Whitaker [Primary Care Provider] - Discharge Data Discharge Date/Time-TO BE ENTERED AT DEPARTURE: 09/22/18 21:57 Medical Decision Making Patient is a 28-year-old male, coming by significant other, with chief complaint of rash to the arches of bilateral feet. He is concerned that he is allergic to sulfa and that this may be in the [place] water and this may cause an allergic reaction. On exam, this is more consistent with athlete's foot. I do not see any evidence of cellulitis or infection. No rash on feet or intraorally. Hx is not consistent with hand/foot and mouth. Rash most concistent with tinea pedis. ADvised OTC treatment options. Discussed when to [place] care urgently for this once again. Advised f/u with PCP next week for reevaluation if not improving. All questions and concerns were addressed, he is in agreement with this plan HPI General Mode of arrival: ambulatory. Date/Time Provider Initiated Documentation: 09/22/18 21:41. Limitations to Documentation: no limitations. Information obtained by: patient, family and RN notes reviewed. History of Present Illness 28 year old M presents to the emergency department with the chief complaint of rash to bilateral feet, described as moderate, Quality is described as other (itchy), and is localized to the left, right and lower extremity. Patient reports no radiation. Patient started experiencing this day(s) and it has been constant. No relieving factors improve symptom(s), No exacerbating factors reported . Patient notes no other symptoms.. Patient did receive the following treatments prior to arrival, none Related Data Home Medications Medication Instructions Recorded Confirmed aripiprazole [Abilify] 5 mg PO DAILY 02/25/16 09/26/18 albuterol sulfate [ProAir HFA] 8.5 gm INHALATION PRN PRN 07/28/17 09/26/18 lidocaine [Lidoderm] 1 patch TOPICAL Q24H #4 patch 05/30/18 09/26/18 lidocaine [Lidoderm] 1 patch TOPICAL Q24H #4 patch 09/04/18 09/26/18 prednisone 50 mg PO DAILY #5 tab 09/26/18 Previous Rx's Medication Instructions Recorded lidocaine [Lidoderm] 1 patch TOPICAL Q24H #4 patch 05/30/18 lidocaine [Lidoderm] 1 patch TOPICAL Q24H #4 patch 09/04/18 prednisone 50 mg PO DAILY #5 tab 09/26/18 Allergies Allergy/AdvReac Type Severity Reaction Status Date / Time Latex, Natural Rubber Allergy Unverified 09/26/18 01:01 Penicillins Allergy Hives Unverified 09/26/18 01:01 Sulfa (Sulfonamide Allergy Hives Unverified 09/26/18 01:01 Antibiotics) oxycodone AdvReac Intermediate Nausea Unverified 09/26/18 01:01 amoxicillin AdvReac Mild stomach Unverified 09/26/18 01:01 issues General Stated Complaint: RashLesion BRENDEN: 5 Review of Systems Constitutional Reports as per HPI, Denies chills and Denies fever(s) Musculoskeletal Reports as per HPI Integumentary/Breasts Reports as per HPI Neurologic Reports as per HPI, Denies sensory deficit and Denies paresthesias [facility] Medical History Nephrolithiasis (Acute) Bipolar 1 disorder (Chronic) Anxiety (Chronic) Asthma (Chronic) Anxiety (Chronic) Asthma (Chronic) Bipolar disorder (Chronic) Surgical History History of ankle surgery (Acute) History of knee surgery (Acute) Social History Smoking/Tobacco Use Status: Never Alcohol Intake: never Drug use: Never Do you feel safe at home: Yes Do you feel safe in your relationship?: Yes Additional Social history: The patient is and has 1 daughter. He is on disability lifelong for learning disability. Reports occasional tobacco use, and no alcohol use. He denies illicit drug use. Exam Const General: cooperative, healthy appearing, comfortable, no acute distress and well developed Nutritional Appearance: average body habitus and well nourished Orientation: alert and awake Resp Effort & Inspection: normal respiratory effort, able to speak in complete sentences and no respiratory distress Cardio Rate: regular rate Rhythm: regular rhythm Skin Rashes: rashes noted (arches of bilatreral feet, raised, circular, pink lesions with excoriations) Neuro General: alert and awake Cognition: normal cognition Speech: speech normal Gait: normal gait Sensory Exam: no sensory deficits noted Psych Appearance: grossly normal and well kempt Mental Status: mental status grossly normal Speech and Movement: speech and movement normal Course Vital Signs Temperature 36.5 C 09/22/18 21:31 Pulse 94 H 09/22/18 21:31 Respiratory Rate 16 09/22/18 21:31 Blood Pressure 118/81 09/22/18 21:31 Pulse Oximetry 95 09/22/18 21:31 Temperature 36.5 C 09/22/18 21:31 Temperature Source Skin 09/22/18 21:31 Pulse 94 H 09/22/18 21:31 Respiratory Rate 16 09/22/18 21:31 Blood Pressure 118/81 09/22/18 21:31 Blood Pressure Position Sitting 09/22/18 21:31 Pulse Oximetry 95 09/22/18 21:31 Oxygen Delivery Method Room Air 09/22/18 21:31 Oxygen Flow Rate 0 09/22/18 21:31 Pain Level 0 09/22/18 21:31
== END 2018-09-22 21:57 | disposition home or self-care (01) ==
PROVIDERS: Emergency Provider Physician Assistant; PCP Family Medicine
DX: B35.3 Tinea pedis (principal)
CPT/HCPCS: 99282

== ENCOUNTER 2018-09-26 00:50 | Emergency (ER) | payer MEDICARE, MEDICAID, SELFPAY ==
--- NOTE | 2018-09-26 00:46 | ED.GENADUL_ITS ---
Discharge Plan Disposition Patient Disposition: HOME Condition: Good Discharge Details Chief Complaint: Nk/Back Pain Clinical Impression: Asthma, Chronic back pain Primary Care Provider: Liz Whitaker ED Provider: Thai Morin Home Meds and New Rx's Prescriptions: New prednisone 50 MG tablet 50 mg PO DAILY Qty: 5 RF: 0 No Action aripiprazole [Abilify] 5 MG tablet 5 mg PO DAILY RF: 0 lidocaine [Lidoderm] 1 PATCH patch 1 patch Topical Q24H Qty: 4 RF: 0 albuterol sulfate [ProAir HFA] 200 PUFF HFA aerosol inhaler 8.5 gm Inhalation PRN PRNRF: 0 lidocaine [Lidoderm] 1 PATCH patch 1 patch Topical Q24H Qty: 4 RF: 0 Discharge Instructions Instructions: Asthma (ED), Chronic Back Pain (ED) Additional Instructions: At this time your signs and symptoms are consistent with asthma, as well as wo rsening of your acute on chronic back pain. For your asthma and your back pain please take the steroid as directed, and for your asthma take the inhaler every 4-6 hours for the next 2 to 3 days. For your back pain please use Lidoderm patch, please keep it on for 12 hours take it off for 12 hours, and then put a new one on. Please use a heating pad regularly, do not perform any heavy lifting greater than 5 to 10 pounds for the next week. If you notice any worsening of your symptoms, or any new symptoms such as vomiting, diarrhea, fever, chills, shortness of breath, chest pain, numbness, weakness, or fainting , please return immediately to the emergency department for reevaluation. Please follow up with your primary care provider as soon as possible for reassessment and reevaluation. As always, it was a pleasure participating in your medical care today. Referrals: Liz Whitaker [Primary Care Provider] - Medical Decision Making This is a 28-year-old male with a past medical history of anxiety, asthma, chronic back pain, who presents today for evaluation of an acute exacerbation of his chronic low back pain, and mild exacerbation of his asthma. In regards to his asthma he states that he felt slightly more short of breath earlier today, however EMS did give him a breathing treatment he had near complete resolution of his symptoms after this. Currently he denies any current severe shortness of breath, significant cough with productive sputum, hemoptysis, fevers or chills. Lung sounds are clear, oxygen saturation is normal, no signs of respiratory distress. In regards to his back pain he states that he does have chronic back pain, however over the last few days he has been doing a notable amount of lifting at the [employer]. He feels that this is worsened his symptoms, and has caused increased low back pain. Exam demonstrates pain in the right paraspinal region. Notable mild paraspinal s pasm. Normal reflexes, normal sensation, no evidence of cauda equina syndrome, saddle anesthesia, or other abnormality. Negative straight leg raise bilaterally. Patient signs and symptoms are clinically consistent with mild chronic asthma, as well as mild chronic lumbago. No concerning red flags of IV drug use, trauma, history of malignancy, or signs or symptoms of nerve compression. We will give Lidoderm patch, steroids for a combination of his chronic back pain and asthma, and a single breathing treatment here. 1:17 AM On reassessment the patient is doing well. Vital signs continue to remain normal, no signs of respiratory distress whatsoever. We will continue outpatient steroids for 5 days, given additional Lidoderm patch for home use, recommend NSAIDs, heating pad, and albuterol inhaler every 6 hours. I have extensively reviewed the treatment plan and discharge instructions with the patient and their family. I have addressed all patient concerns at this time. The patient and family was made aware of what symptoms to monitor for that would warrant a return to the emergency department. Discussed the plan with the patient and family, they demonstrate verbal understanding and agreement with our assessment and plan at this time. HPI General Date/Time Provider Initiated Documentation: 09/26/18 00:56 . HPI Narrative: This is a 27-year-old male with a past medical history of bipolar disease, and kidney stones, anxiety, asthma. He presents today by EMS for mild exacerbation of his chronic back pain, as well as mild shortness of breath. He was given 1 breathing treatment by EMS and states that his shortness of breath is nearly completely resolved now. In regards to his back pain he states that he has been volunteering at the [employer] and doing a significant amount of heavy lifting as of late. States that his back pain is gradually been getting worse. He denies any acute falls, trauma, IV illicit drug use, bowel or bladder incontinence, saddle anesthesia, or other complaints. He denies any numbness tingling or weakness. He has no other complaints at this time. No other modifying factors Related Data Home Medications Medication Instructions Recorded Confirmed aripiprazole [Abilify] 5 mg PO DAILY 02/25/16 09/26/18 albuterol sulfate [ProAir HFA] 8.5 gm INHALATION PRN PRN 07/28/17 09/26/18 lidocaine [Lidoderm] 1 patch TOPICAL Q24H #4 patch 05/30/18 09/26/18 lidocaine [Lidoderm] 1 patch TOPICAL Q24H #4 patch 09/04/18 09/26/18 prednisone 50 mg PO DAILY #5 tab 09/26/18 Previous Rx's Medication Instructions Recorded lidocaine [Lidoderm] 1 patch TOPICAL Q24H #4 patch 05/30/18 lidocaine [Lidoderm] 1 patch TOPICAL Q24H #4 patch 09/04/18 prednisone 50 mg PO DAILY #5 tab 09/26/18 Allergies Allergy/AdvReac Type Severity Reaction Status Date / Time Latex, Natural Rubber Allergy Unverified 09/26/18 01:01 Penicillins Allergy Hives Unverified 09/26/18 01:01 Sulfa (Sulfonamide Allergy Hives Unverified 09/26/18 01:01 Antibiotics) oxycodone AdvReac Intermediate Nausea Unverified 09/26/18 01:01 amoxicillin AdvReac Mild stomach Unverified 09/26/18 01:01 issues General BRENDEN: 5 Review of Systems Review of Systems All systems reviewed & are unremarkable except as noted in HPI and below PFSH Social History Smoking/Tobacco Use Status: Never Alcohol Intake: never Drug use: Never Do you feel safe at home: Yes Do you feel safe in your relationship?: Yes Additional Social history: The patient is and has 1 daughter. He is on disability lifelong for learning disability. Reports occasional tobacco use, and no alcohol use. He denies illicit drug use. Exam Narrative Exam Narrative: 1.Const: Well-nourished, Well-developed, appearing stated age 2.Eyes: PERRL, no conjunctival injection, and symmetrical lids. 3.ENT: Atraumatic external nose and ears. Moist MM. Neck: Symmetric, trachea midline, No thyromegaly. 4.CVS: +S1/S2, No murmurs or gallops. Peripheral pulses 2+ and equal in all extremities. Brisk capillary refill in all extremities. 5.RESP: Unlabored respiratory effort. Clear to auscultation bilaterally. No wheezes rales or rhonchi 6.GI: Soft, Nontender/Nondistended, No hepatosplenomegaly. No guarding or rebound. 7.MSK: Normocephalic/Atraumatic, Extremities w/o deformity or ttp No cyanosis or clubbing, Normal movement of all extremities. No midline tenderness to palpation over the CTLS spine. Mild right-sided paraspinal tenderness. Normal ROM in flexion, extension, side bend, and rotation. Patient has +5 out of 5 strength in the lower extremities in dorsiflexion and plantarflexion, knee flexion and extension, hip flexion and extension. There is +2 over 2 dorsalis pedis pulses bilaterally. There is normal sensation to the skin with light touch at the foot, knee, and hip. Normal saddle sensation. Good sensation over the deep sural nerve area bilaterally. Rectal exam demonstrates good rectal tone, normal perirectal sensation.. Reflexes are +2 over 4 in the patellar reflex bilaterally. +5 out of 5 strength in the medial, ulnar, radial nerve distribution bilaterally in the hands as well as intact light touch sensation to these dermatomes on the hands 8.Skin: Warm, Dry. No rashes or lesions. 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 Sensation grossly intact, no focal neurologic deficits. 10.Psych: (AAO) x3. Appropriate mood and affect
[2018-09-26 00:53] VITALS: PULSE 66; RESP 18; TEMP 36.3; O2SAT 98
[2018-09-26 00:56] VITALS: BP 143/83
[2018-09-26] MEDS: predniSONE 20 MG TAB 60 MG PO (01:02)
[2018-09-26 01:07] VITALS: RESP 1
[2018-09-26] MEDS: Albuterol/Ipratropium 3 ML UPD VIAL UPD (01:07)
[2018-09-26] MEDS: Lidocaine 5% Patch 1 PATCH TP ×2 (01:08→01:09)
[2018-09-26 01:30] VITALS: PULSE 89; O2SAT 97
== END 2018-09-26 01:31 | disposition home or self-care (01) ==
LOC: ER 01:32
PROVIDERS: Emergency Provider Student in an Organized Health Care Education/Training Program; PCP Family Medicine
DX: M54.5 Low back pain (principal); G89.29 Other chronic pain; J45.909 Unspecified asthma, uncomplicated
CPT/HCPCS: 94640; 99283; J7512; J7620

== ENCOUNTER 2018-11-18 06:08 | Emergency (ER) | payer MEDICARE, MEDICAID, SELFPAY ==
[2018-11-18 06:11] VITALS: BP 164/93; PULSE 81; RESP 22; TEMP 37.9; O2SAT 98
--- NOTE | 2018-11-18 06:13 | ED.GENADUL_ITS ---
Discharge Plan Disposition Patient Disposition: HOME Condition: Good Discharge Details Chief Complaint: SOB Clinical Impression: Asthma exacerbation Primary Care Provider: Liz Whitaker ED Provider: Thai Morin Home Meds and New Rx's Prescriptions: No Action aripiprazole [Abilify] 5 MG tablet 5 mg PO DAILY RF: 0 albuterol sulfate [ProAir HFA] 200 PUFF HFA aerosol inhaler 8.5 gm Inhalation PRN PRNRF: 0 Discharge Instructions Instructions: Asthma (ED) Additional Instructions: You have an asthma exacerbation. It may have been brought on by a mild virus. Please use your inhaler every 4 hours for the next 24 to 48 hours. If you notice any worsening of your symptoms, or any new symptoms such as vomiting, diarrhea, fever, chills, shortness of breath, chest pain, numbness, weakness, or fainting , please return immediately to the emergency department for reevaluation. Please follow up with your primary care provider as soon as possible for reassessment and reevaluation. As always, it was a pleasure participating in your medical care today. Referrals: Liz Whitaker [Primary Care Provider] - Medical Decision Making This is a 28-year-old male with a past medical history of asthma, anxiety, bipolar disorder who presents today for evaluation of mild shortness of breath. Patient states that yesterday he did some running with his daughter, and was working on a car in the seem to be aggravating factors for his shortness of breath. He has taken some breathing treatments at home but this is not resolved his symptoms. He denies any red flags of cough, fever, chills, hemoptysis, arm neck or shoulder pain. He does admit to mild chest tightness seems similar to his asthma. He does note that today's chest tightness is notably less than it normally is with his asthma. Physical exam demonstrates mildly reduced breath sounds in the right with minimal wheeze. Vital signs are notably reassuring.'s temperature is mildly elevated at 37.9. No tachypnea, tachycardia, and he does demonstrate normal oxygen saturation. We will give breathing treatments, get an EKG and reassess. At this time signs and symptoms are clinically inconsistent with ACS, more concerning for mild asthma exacerbation. With no crackles, on auscultation, and no evidence of B-lines or significant consolidation on bedside limited ultrasound I feel that there was certainly less likely. He may have mild viral bronchitis. Of note he does continue to smoke, we have advised him that this is beneficial to his asthma. We will reassess after breathing treatments. 6:47 AM On reassessment the patient has near complete resolution of his symptoms. His lung sounds are notably normal throughout, he states that he feels better and would like to go home. Signs and symptoms appear clinically consistent with mild asthma exacerbation. Resolution of his symptoms I see no indication for prolonged steroids at this time. I do feel he may have a mild virus causing mild bronchitis/URI that could also be exacerbating his symptoms. Otherwise the patient remains normotensive, with no tachycardia, normal respirations, normal oxygen saturation. Patient will be discharged home. We discussed the importance of stopping smoking, as well as red flags for which to return. There is no clinical evidence of significant pneumonia requiring antibiotic treatment at this time. I have extensively reviewed the treatment plan and discharge instructions with the patient and their family. I have addressed all patient concerns at this time. The patient and family was made aware of what symptoms to monitor for that would warrant a return to the emergency department. Discussed the plan with the patient and family, they demonstrate verbal understanding and agreement with our assessment and plan at this time. EKG 6: 17 Rate 60, intervals normal, sinus rhythm, no significant ST elevations or depressions, no T wave inversions. No Q waves. HPI General Date/Time Provider Initiated Documentation: 11/18/18 06:09 . HPI Narrative: This is a 28-year-old male with a past medical history of bipolar disorder, satiety, and asthma who presents today for evaluation of shortness of breath. He states that yesterday he did some running, and is also working on his car. This seemed to cause some mild shortness of breath during that episode. He denies any significant cough, fever or chills. He does admit to mild chest tightness, but states that it is not as bad as his normal asthma chest tightness. He denies any vomiting or diarrhea, headache, neck pain, num bness tingling or weakness. He denies any other complaints modifying factors at this time. He denies any sore throat, headache, neck pain. He denies any abdominal pain or back pain. He denies any dysuria or urinary frequency. Related Data Home Medications Medication Instructions Recorded Confirmed aripiprazole [Abilify] 5 mg PO DAILY 02/25/16 09/26/18 albuterol sulfate [ProAir HFA] 8.5 gm INHALATION PRN PRN 07/28/17 09/26/18 Allergies Allergy/AdvReac Type Severity Reaction Status Date / Time Latex, Natural Rubber Allergy Unverified 11/18/18 06:16 Penicillins Allergy Hives Unverified 11/18/18 06:16 Sulfa (Sulfonamide Allergy Hives Unverified 11/18/18 06:16 Antibiotics) oxycodone AdvReac Intermediate Nausea Unverified 11/18/18 06:16 amoxicillin AdvReac Mild stomach Unverified 11/18/18 06:16 issues General BRENDEN: 4 Review of Systems Review of Systems All systems reviewed & are unremarkable except as noted in HPI and below PFSH Social History Smoking/Tobacco Use Status: Never Alcohol Intake: never Drug use: Never Substance use type: does not use Do you feel safe at home: Yes Do you feel safe in your relationship?: Yes Additional Social history: The patient is and has 1 daughter. He is on disability lifelong for learning disability. Reports occasional tobacco use, and no alcohol use. He denies illicit drug use. Exam Narrative Exam Narrative: 1.Const: Well-nourished, Well-developed, appearing stated age 2.Eyes: PERRL, no conjunctival injection, and symmetrical lids. 3.ENT: Atraumatic external nose and ears. Moist MM. Neck: Symmetric, trachea midline, No thyromegaly. Minimal erythema in the posterior oropharynx. No tonsillar exudates or tonsillar enlargement. Patient demonstrates good movement of cervical neck. There is no nuchal rigidity, no nuchal tenderness. Patient is able to flex the neck without any difficulty or significant pain. Negative Kernig's and Brudzinski sign. 4.CVS: +S1/S2, No murmurs or gallops. Peripheral pulses 2+ and equal in all extremities. Brisk capillary refill in all extremities. 5.RESP: Unlabored respiratory effort. Slightly decreased breath sounds throughout with mild wheezes in the right and left lower. No crackles, no rhonchi. 6.GI: Soft, Nontender/Nondistended, No hepatosplenomegaly. No guarding or rebound. 7.MSK: Normocephalic/Atraumatic, Extremities w/o deformity or ttp No cyanosis or clubbing, Normal movement of all extremities 8.Skin: Warm, Dry. No rashes or lesions. 9.Neuro: lathe sander II-XII grossly intact. Sensation grossly intact, no focal neurologic deficits. 10.Psych: (AAO) x3. Appropriate mood and affect
[2018-11-18 06:18] VITALS: RESP 22
[2018-11-18 06:24] VITALS: PULSE 81; RESP 22; RESP 4; RESP 8; O2SAT 98
[2018-11-18] MEDS: Albuterol/Ipratropium 3 ML UPD VIAL 6 ML UPD (06:24)
[2018-11-18 06:48] VITALS: RESP 1
== END 2018-11-18 06:55 | disposition home or self-care (01) ==
PROVIDERS: Emergency Provider Student in an Organized Health Care Education/Training Program; PCP Family Medicine
DX: J45.901 Unspecified asthma with (acute) exacerbation (principal); F17.210 Nicotine dependence, cigarettes, uncomplicated
CPT/HCPCS: 93005; 94640; 99283; 93010; J7620

== ENCOUNTER 2018-12-09 15:38 | Emergency (ER) | payer MEDICARE, MEDICAID, SELFPAY ==
[2018-12-09 15:43] VITALS: BP 139/93; PULSE 90; RESP 16; TEMP 36.7; O2SAT 98
--- NOTE | 2018-12-09 15:53 | W.ED.GENAD ---
Discharge Plan Disposition Patient Disposition: HOME Condition: Improving Discharge Details Chief Complaint: Headache Clinical Impression: Headache Primary Care Provider: Liz Whitaker ED Provider: Atiya Ruano Home Meds and New Rx's Prescriptions: Continued aripiprazole [Abilify] 5 MG tablet 5 mg PO DAILY RF: 0 albuterol sulfate [ProAir HFA] 200 PUFF HFA aerosol inhaler 8.5 gm Inhalation PRN PRNRF: 0 Discharge Instructions Instructions: General Headache (ED) Additional Instructions: The CT scan of your head and the blood work performed today are reassuring. Please encourage hydration. May continue with Tylenol and ibuprofen as needed if symptoms return. Please follow-up with primary care this week for reevaluation. If you develop new or worsening symptoms seek care urgently once again. Referrals: Liz Whitaker [Primary Care Provider] - Medical Decision Making Patient is a 28-year-old male, well-known to myself, with chief complaint of headache x1 week. Reports that the pain is primarily across the bilateral catholic areas head. States the pain came on after traveling to [place]. Denies any fevers or chills. No visual changes, weakness, sensation deficits. He denies any rash. States that headache has been intermittent. It does not come on suddenly. No history of bleed. States that he does not typically have headaches. If he does have headache, reports they are quite mild and resolved quickly with Tylenol and ibuprofen. He reports that he has attempted this with current headache but that was unsuccessful at alleviating his discomfort. On exam, patient is resting comfortably. Neurologic exam is intact. No nuchal rigidity. He appears nontoxic. Vital signs significant for mild tachycardia with a blood pressure of 139/93 which is typical for the patient. No rashes noted. Plan obtain labs for evaluation. Will give Compazine, dexamethasone and Benadryl for headache. As he does appear dry, will hydrate the patient. As this is new for the patient has been quite severe over the past week, plan to obtain imaging. CT reviewed by radiologist: FINDINGS: Brain: Normal. No hemorrhage. Unremarkable white matter. No mass effect. Ventricles: Normal. No ventriculomegaly. Bones/joints: Unremarkable. No acute fracture. Sinuses: Mucosal thickening in the ethmoid sinuses and maxillary sinuses may represent mild sinusitis. Mastoid air cells: Visualized mastoid air cells are well aerated. No mastoid effusion. Soft tissues: Unremarkable. IMPRESSION: Mucosal thickening in the ethmoid sinuses and maxillary sinuses may represent mild sinusitis. No acute intracranial hemorrhage. Labs reviewed, no leukocytosis, ESR is within normal limits, no electrolyte abnormalities. Discussed these and the results of CT scan with the patient. Discussed these findings with the patient in depth. Encourage hydration. He is feeling much improved and reports that he has no headache at all at this time. Encourage close follow-up with his primary care. He was given strict return precautions. All his questions and concerns were addressed and he is in agreement this plan. HPI General Mode of arrival: ambulatory. Date/Time Provider Initiated Documentation: 12/09/18 15:52. Limitations to Documentation: no limitations. Information obtained by: patient, family and RN notes reviewed. History of Present Illness 28 year old M presents to the emergency department with the chief complaint of headache, described as moderate, with intensity rated at 7. Quality is described as aching, and is localized to the head. Patient reports no radiation. Patient started experiencing this week(s) (1) and it has been intermittent. No relieving factors improve symptom(s), No exacerbating factors reported . Patient notes no other symptoms. and headaches; denies confusion, chest pain, cough, diaphoresis, fever/chills, loss of appetite, malaise, nausea/vomiting, rash, shortness of breath and syncope. Patient did receive the following treatments prior to arrival, NSAID Related Data Home Medications Medication Instructions Recorded Confirmed aripiprazole [Abilify] 5 mg PO DAILY 02/25/16 12/09/18 albuterol sulfate [ProAir HFA] 8.5 gm INHALATION PRN PRN 07/28/17 12/09/18 Allergies Allergy/AdvReac Type Severity Reaction Status Date / Time Latex, Natural Rubber Allergy Unverified 12/09/18 15:48 Penicillins Allergy Hives Unverified 12/09/18 15:48 Sulfa (Sulfonamide Allergy Hives Unverified 12/09/18 15:48 Antibiotics) oxycodone AdvReac Intermediate Nausea Unverified 12/09/18 15:48 amoxicillin AdvReac Mild stomach Unverified 12/09/18 15:48 issues General Stated Complaint: Headache BRENDEN: 3 Review of Systems Constitutional Reports as per HPI, Denies chills, Reports fatigue, Denies fever(s), Denies frequent falls, Reports headache(s), Denies snoring and Denies weakness Eyes Reports as per HPI, Denies blurry vision, Denies change in vision and Reports photophobia ENT Denies vertigo, Reports headache(s) and Denies neck pain Cardiovascular Reports as per HPI, Denies chest pain, Denies lightheadedness, Denies radiating jaw, neck or arm pain, Denies dyspnea and Denies dyspnea on exertion Respiratory Reports as per HPI, Denies chest congestion, Denies cough, Denies dyspnea, Denies dyspnea on exertion, Denies snoring, Denies stridor and Denies wheezing Gastrointestinal Reports as per HPI, Denies abdominal pain, Denies change in bowel habits, Denies nausea and Denies vomiting Genitourinary Reports system reviewed and no additional complaints, except as docu (denies change in urinary habits) Musculoskeletal Reports as per HPI, Denies back pain, Denies myalgias, Denies muscle cramps, Denies neck pain and Denies numbness Integumentary/Breasts Reports as per HPI and Denies rash Neurologic Reports as per HPI, Denies abnormal movements, Denies abnormal speech, Denies behavioral changes, Denies confusion, Denies vertigo, Denies frequent falls, Reports headache(s), Denies focal weakness, Denies numbness, Denies sensory deficit and Denies weakness Psychiatric Denies behavioral changes and Denies confusion Endocrine Reports fatigue Allergic/Immunologic Denies wheezing [facility] Social History Smoking/Tobacco Use Status: Former Tobacco Use Alcohol Intake: never Drug use: Never Substance use type: does not use Do you feel safe at home: Yes Do you feel safe in your relationship?: Yes Additional Social history: The patient is and has 1 daughter. He is on disability lifelong for learning disability. Reports occasional tobacco use, and no alcohol use. He denies illicit drug use. Exam Const General: cooperative, healthy appearing, uncomfortable, no acute distress, well developed and well groomed Nutritional Appearance: well nourished and obese Orientation: alert, awake and oriented x3 HENMT Head: normal to inspection, no palpable skull fracture, normocephalic and atraumatic Ears: hearing grossly normal bilaterally, external ears normal and TM's normal bilaterally General nose exam: external nose normal Mouth: oral mucosae normal and moist mucous membranes Throat: posterior oropharynx normal Eyes General: appearance normal, both eyes and all related structures Alignment and Position: alignment normal Periorbital: periorbital findings normal Eyelids: eyelids normal Sclera: sclerae normal Cornea: corneas normal Pupils: PERRL EOM: EOM intact bilaterally Neck Neck: normal visual inspection, full ROM, no lymphadenopathy and no meningeal signs Resp Effort & Inspection: normal respiratory effort, able to speak in complete sentences and no respiratory distress Auscultation: clear to auscultation bilaterally, no rales, no rhonchi and no wheezes Cardio Rate: regular rate Rhythm: regular rhythm Heart Sounds: S1 normal and S2 normal GI Inspection: normal to inspection and non-distended Palpation: soft, no hepatosplenomegaly, not firm, no guarding, not rigid and nontender Percussion: normal to percussion Auscultation: normal bowel sounds Back/Spine/Pelvis Cervical Spine: normal cervical lordosis and cervical ROM normal Skin General skin exam: no rashes or lesions noted Neuro General: alert, awake and oriented x3 Cranial Nerves: CN's II-XI intact bilaterally Cognition: normal cognition Speech: speech normal Gait: normal gait Motor: muscle tone normal throughout, strength 5/5 throughout, no pronator drift, no movement abnormalities noted and no fasciculations Sensory Exam: no sensory deficits noted Coordination: [id number] test normal and [id number] test normal Extrem General: normal to inspection, normal capillary refill, no pedal edema and no calf tenderness Psych Appearance: grossly normal and well kempt Mental Status: mental status grossly normal Speech and Movement: speech and movement normal Course Vital Signs Temperature 36.7 C 12/09/18 15:43 Pulse 90 12/09/18 15:43 Respiratory Rate 16 12/09/18 15:43 Blood Pressure 139/93 H 12/09/18 15:43 Pulse Oximetry 98 12/09/18 15:43 Temperature 36.7 C 12/09/18 15:43 Temperature Source Temporal Artery Scan 12/09/18 15:43 Pulse 90 12/09/18 15:43 Respiratory Rate 16 12/09/18 15:43 Respiratory Effort Non-Labored 12/09/18 15:46 Blood Pressure 139/93 H 12/09/18 15:43 Blood Pressure Position Sitting 12/09/18 15:43 Pulse Oximetry 98 12/09/18 15:43 Oxygen Delivery Method Room Air 12/09/18 15:43 Oxygen Flow Rate 0 12/09/18 15:43 Pain Level 6 12/09/18 15:47
--- NOTE | 2018-12-09 16:05 | DI.CT_ITS ---
SYMPTOM/DIAGNOSIS: HEADACHE NONCONTRAST HEAD CT: No intracranial hemorrhage, mass or infarct is seen. The ventricles are normal in size. There is minimal sinus mucosal thickening. The orbits and mastoid air cells are unremarkable. IMPRESSION: No acute abnormality
[2018-12-09 16:31] LABS: Abs Immature Grans 0.01 k/cumm (0.0-0.09); Absolute Basophil Count 0.03 k/cumm (0.0-0.2); Absolute Eosinophil Count 0.18 k/cumm (0.0-0.7); Absolute Lymphocyte Count 2.05 k/cumm (1.2-3.4); Absolute Monocyte Count 0.91 k/cumm (0.11-0.7); Absolute Neutrophil Count 5.87 k/cumm (1.2-6.7); Basophils % 0.3; HCT 42.7 % (40.0-50.0); HGB 14.9 g/dL (13.5-17.5); Immature Grans % 0.1; Lymphocytes % 22.7; Mean Corp. HGB Concentration 34.9 g/dL (32.0-36.0); Mean Corpuscular Hemoglobin 30.7 pg (27.0-33.0); Mean Platelet Volume 10.1 fL (8.0-11.0); Monocytes % 10.1; Neutrophils % 64.8; Platelet Count 263 x1000/uL (130-400); RBC 4.85 m/cumm (4.50-6.00); RBC Distribution Width 13.2 % (11.8-14.1); White Blood Cell Count 9.05 k/cumm (4.4-10.8)
[2018-12-09] MEDS: diphenhydrAMINE 50 MG/ML VIAL 25 MG IVP (16:33)
[2018-12-09] MEDS: Normal Saline 1,000 ML 1000 ML IV (16:33)
[2018-12-09] MEDS: Prochlorperazine 10 MG/2 ML VIAL IVP (16:33)
[2018-12-09] MEDS: Dexamethasone 10 MG/ML VIAL IVP (16:33)
[2018-12-09 16:46] LABS: ALT 64 U/L (16-63); AST 37 U/L (15-37); Albumin 3.6 g/dL (3.4-5.0); Alkaline Phosphatase 92 U/L (46-116); BUN 14 mg/dL (7-18); Bilirubin, Total 0.2 mg/dL (0.2-1.0); CREATININE 1.16 mg/dL (0.70-1.30); Calcium 8.4 mg/dL (8.5-10.1); Chloride 105 mmol/L (98-107); Glucose 96 mg/dL (70-100); Potassium 3.6 mmol/L (3.5-5.1); Sodium 138 mmol/L (136-145); Total Protein 7.4 g/dL (6.4-8.2)
[2018-12-09 16:51] LABS: PTT Activated 21.6 sec (21.0-31.4)
[2018-12-09 17:17] LABS: ESR 10 mm/hr (0-15)
--- NOTE | 2018-12-09 17:28 | DI.VRAD_ITS ---
EXAM: CT Head Without Contrast EXAM DATE/TIME: 12/09/2018 4:11 PM CLINICAL HISTORY: 28 years old, male; Other: Headache TECHNIQUE: Imaging protocol: Computed tomography images of the head without contrast. Radiation optimization: All CT scans at this facility use at least one of these dose optimization techniques: automated exposure control; mA and/or kV adjustment per patient size (includes targeted exams where dose is matched to clinical indication); or iterative reconstruction. COMPARISON: No relevant prior studies available. FINDINGS: Brain: Normal. No hemorrhage. Unremarkable white matter. No mass effect. Ventricles: Normal. No ventriculomegaly. Bones/joints: Unremarkable. No acute fracture. Sinuses: Mucosal thickening in the ethmoid sinuses and maxillary sinuses may represent mild sinusitis. Mastoid air cells: Visualized mastoid air cells are well aerated. No mastoid effusion. Soft tissues: Unremarkable. IMPRESSION: Mucosal thickening in the ethmoid sinuses and maxillary sinuses may represent mild sinusitis. No acute intracranial hemorrhage. Dictated and Authenticated by: Lino Kee MD. Ordering:SIXTO Rajput MD
[2018-12-09 17:53] VITALS: BP 139/93; PULSE 90; RESP 16; TEMP 36.7; O2SAT 98
== END 2018-12-09 17:55 | disposition home or self-care (01) ==
PROVIDERS: Emergency Provider Physician Assistant; PCP Family Medicine
DX: R51 Headache (principal)
CPT/HCPCS: 80053; 85652; 96361; 96374; 96375; 99284; 70450; 85025; 85730; J0780; J1100; J1200

== ENCOUNTER 2019-01-12 01:18 | Outpatient (CLI) | payer MEDICARE, MEDICAID, SELFPAY ==
--- NOTE | 2019-01-12 15:16 | DI.US_ITS ---
EXAM: US RENAL CLINICAL HISTORY: monitor stone size, r/o persistent hydronephrosis. TECHNIQUE: Ultrasound performed using standard protocol. COMPARISON: US scrotum from 04/07/2018 FINDINGS: Kidneys are normal in size and shape. There is no evidence of hydronephrosis. There is a right midp ole renal calculus which by ultrasound measurement is about 7 millimeters in diameter. Please note t hat this may not correlate exactly with measurements obtained by CT. Urinary bladder contains 70 cc. The patient was unable to void. Ureteral jets are seen bilaterally. IMPRESSION:
== END 2019-01-12 01:38 ==
PROVIDERS: PCP Family Medicine; Visit Provider Urology
DX: N20.0 Calculus of kidney (principal); N20.1 Calculus of ureter
CPT/HCPCS: 76770